=== PATIENT | male | born 1935 | race Caucasian/White ===

== ENCOUNTER 2019-05-22 18:08 | Inpatient (IN) | payer OTHER ==
[2019-05-22] MEDS ORDERED: LIDOCAINE 5% TOPICAL PATCH TP ONE (19:23)
[2019-05-22] MEDS ORDERED: CYCLOBENZAPRINE HCL 10 MG TABLET (FP) PO ONE (19:23)
[2019-05-22] MEDS ORDERED: NAPROXEN 500 MG TABLET (FP) PO ONE (19:31)
--- NOTE | 2019-05-22 19:37 | PDOC ---
Attending Attestation - Resident Resident Name: BrandenSteven blevins - ED Attending Attestation I have performed the following: I have examined & evaluated the patient, The case was reviewed & discussed with the resident, I agree w/resident's findings & plan - HPI HPI: 05/23/19 03:11 see resident hpi - Physicial Exam PE: 05/23/19 03:11 GENERAL: chronically ill appearing HEAD: No signs of trauma EYES: LUNGS:. Normal work of breathing. HEART: Regular rate and rhythm, ABDOMEN: Soft, nondistended CHEST WALL: BACK: No midline tenderness. EXTREMITIES:. tenderness left lateral hip, no deformity, positive NEUROLOGICAL: Alert, SKIN: Warm, Dry - Medical Decision Making 05/23/19 03:31 83-year-old male with left hip leg and low back pain CT scan of the abdomen and pelvis shows multilevel disc disease in the lumbar spine There does not appear to be a fracture present Patient has persistent pain and is unable to ambulate Will admit to medical service for management
--- NOTE | 2019-05-22 21:03 | PDOC ---
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 Admits numbness/tingling pain shooting down his leg and has not had a BM in 3 days which is unusual. Pt denies recent trauma , back pain, saddle anesthesia, abdominal pain, weakness in the leg, F/C/N/V, CP , SOB Past History - Past Medical History Allergies/Adverse Reactions: Allergies Allergy/AdvReac Type Severity Reaction Status Date / Time No Known Allergies Allergy Verified 05/22/19 19:54 Home Medications: Ambulatory Orders Albuterol Sulfate Inhaler - [Ventolin HFA Inhaler -] 1 puff IH PRN PRN 05/23/19 Amlodipine Besylate [Norvasc -] 5 mg PO DAILY 05/23/19 Aspirin [Aspirin EC] 81 mg PO DAILY 05/23/19 Cholecalciferol (Vitamin D3) [Vitamin D3] 400 unit PO DAILY 05/23/19 Cyanocobalamin [Vitamin B12 -] 2,000 mcg PO DAILY 05/23/19 Levothyroxine [Synthroid -] 88 mcg PO DAILY 05/23/19 Multivitamin [Multiple Vitamins] 1 tab PO DAILY 05/23/19 Sertraline HCl [Zoloft -] 25 mg PO DAILY 05/23/19 Tamsulosin HCl [Flomax] 0.4 mg PO DAILY 05/23/19 Tramadol HCl 50 mg PO DAILY 05/23/19 Hydrocortisone Valerate [Westcort 0.2% Cream -] 1 applic TP BID 05/24/19 - Suicide/Smoking/Psychosocial Hx Smoking History: Unknown if ever smoked Hx Alcohol Use: No Drug/Substance Use Hx: No Review of Systems - Review of Systems Constitutional: No: Chills, Fever Respiratory: No: Shortness of Breath Cardiac (ROS): No: Chest Pain, Syncope ABD/GI: Yes: Constipated. No: Diarrhea, Nausea, Vomiting : Yes: Frequency (decreased). No: Burning, Dysuria, Flank Pain, Hematuria, Incontinence Musculoskeletal: Yes: Other (left hip pain with radiation down left leg). No: Back Pain Integumentary: No: Change in Color Neurological: Yes: Numbness, Paresthesia, Unsteady Gait. No: Headache, Weakness , Ataxia, Dizziness *Physical Exam - Vital Signs Last Vital Signs Temp Pulse Resp BP Pulse Ox 97 F L 85 20 143/72 97 05/22/19 18:10 05/22/19 18:10 05/22/19 18:10 05/22/19 18:10 05/22/19 18:32 - Physical Exam General Appearance: Yes: Nourished, Appropriately Dressed, Apparent Distress ( due to pain) HEENT: positive: EOMI. negative: CAROLA, Normal Voice (uses assitive device) Neck: positive: Supple. negative: Rigid Respiratory/Chest: positive: Lungs Clear, Normal Breath Sounds. negative: Respiratory Distress, Accessory Muscle Use Cardiovascular: positive: Regular Rhythm, Regular Rate, S1, S2. negative: Edema , JVD, Murmur Vascular Pulses: Dorsalis-Pedis (R): 4+, Doralis-Pedis (L): 4+ Gastrointestinal/Abdominal: positive: Flat, Soft. negative: Pulsatile Mass, Distended, Guarding, Rebound, Tenderness Rectal Exam: positive: normal rectal tone. negative: hemorrhoids Extremity: positive: Normal Capillary Refill, Normal Inspection, Normal Range of Motion, Other (reproducible numbness/tingling down left leg with palpation to the piriformis) Integumentary: positive: Normal Color, Dry, Warm Neurologic: positive: Fully Oriented, Alert, Normal Mood/Affect, Normal Response , Motor Strength 5/5. 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 Admits numbness/tingling pain shooting down his leg and has not had a BM in 3 days which is unusual. Pt denies recent trauma , back pain, saddle anesthesia, abdominal pain, weakness in the leg, F/C/N/V, CP , SOB vitals WNL Pt has point tenderness around piroformis with reproducible shooting pain on exam, neg straight leg raise Muscle relaxent, NSAID and lidoderm patch given 05/22/19 22:29 Ortiz Black [phone] Abel Black Kana [phone] On reassessment pt admits to improved pain but continues to have difficulty with ambulation Due to past hx of prostate CA and new symptoms, with do APCT with Lumbar spine recon if neg, pt likely be DC for sciatica/piriformis syndrome with muscle relaxants and NSAIDs to control pain with PCP F/U Pt will be s/o to night team *DC/Admit/Observation/Transfer Diagnosis at time of Disposition: Unable to ambulate - Discharge Dispostion Condition at time of disposition: Stable - Referrals - Patient Instructions - Post Discharge Activity
[2019-05-22] MEDS ORDERED: NAPROXEN 500 MG TABLET (FP) ONE (21:24)
[2019-05-22] MEDS ORDERED: CYCLOBENZAPRINE HCL 10 MG TABLET (FP) ONE (21:24)
[2019-05-22] MEDS ORDERED: LIDOCAINE 5% TOPICAL PATCH ONE (21:24)
[2019-05-22] MEDS: LIDOCAINE PATCH REMOVAL MC SCH (22:16)
--- NOTE | 2019-05-23 03:04 | PDOC ---
*Physical Exam - Vital Signs Last Vital Signs Temp Pulse Resp BP Pulse Ox 97 F L 85 20 143/72 98 05/22/19 18:10 05/22/19 18:10 05/22/19 22:22 05/22/19 18:10 05/22/19 22:22 ED Treatment Course - RADIOLOGY Radiology Studies Ordered: Category Date Time Status FEMUR-LEFT [RAD] Stat Radiology 05/23/19 02:58 Ordered - Medications Given in the ED: ED Medications Discontinued Medications Generic Name Dose Route Start Last Admin Trade Name Erin PRN Reason Stop Dose Admin Cyclobenzaprine HCl 5 mg 05/22/19 19:23 05/22/19 21:27 Flexeril - PO 05/22/19 19:24 5 mg ONCE ONE Administration Lidocaine 1 patch 05/22/19 19:23 05/22/19 21:27 Lidoderm Patch - TP 05/22/19 19:24 1 patch ONCE ONE Administration Naproxen 500 mg 05/22/19 19:31 05/22/19 21:28 Naprosyn - PO 05/22/19 19:32 500 mg ONCE ONE Administration Medical Decision Making - Medical Decision Making 05/23/19 03:02 Pt signed out to me by Dr. Reddy. 83M with MMP including CA presenting with L lower back pain concerning for piriformis syndrome. Pt very TTP and cannot ambulate. Will admit for inability to ambulate and further evaluation of low back pain. Rectal exam shows normal tone. Reflexes normal. Microblogged for admission. *DC/Admit/Observation/Transfer - Referrals Referrals: ON STAFF,NOT [Primary Care Provider] - - Patient Instructions - Post Discharge Activity
--- NOTE | 2019-05-23 03:21 | PN ---
Teaching Attending Note Name of Resident: Arlene Bond ATTENDING PHYSICIAN STATEMENT I saw and evaluated the patient. I reviewed the resident's note and discussed the case with the resident. I agree with the resident's findings and plan as documented. SUBJECTIVE: Patient is an 83 year old man with PMH of Prostate cancer, Laryngeal cancer (s/ p resection with vocal assist device), Hypothyroidism and Hypertension who presents to the ER for 3 days of left lateral buttock pain with radiation down the leg. Patient states he has had similar pain in the past, treated by primary doctor with tramadol. However, patient did not get relief with his pain at this time. Admits numbness/tingling pain shooting down his leg and has not had a bowel movement in 3 days which is unusual. Has had some chills but no fever. Patient denies recent trauma, back pain, saddle anesthesia, abdominal pain, weakness in the leg, fever, nausea, vomiting, chest pain or SOB. OBJECTIVE: Alert and uses voice box to communicate Vital Signs Period Temp Pulse Resp BP Sys/Bennett Pulse Ox Last 24 Hr 97 F 85 20-20 143/72 97-98 HEENT: No Jaundice, eye redness or discharge, Left eye cataract, EOMI. Normocephalic, atraumatic. External ears are normal and hearing is grossly intact. No nasal discharge. Neck: Supple, nontender. No palpable adenopathy or thyromegaly. No JVD Chest: Good effort. Clear to auscultation and percussion. Heart: Regular. No S3, rub or murmur Abdomen: Not distended, soft, nontender and no HSM. Supraumblical hernia; No rebound or guarding. Normal bowel sounds. Ext: Peripheral pulses intact. Missing 3rd digit of right hand. No leg edema. Tenderness in left lateral hip aarea. Skin: Warm and dry. No petechiae, rash or ecchymosis. Neuro: Alert. Oriented x3. CN 2-12 grossly intact. Sensation grossly intact in all four extremities and DTR are symmetric. Gait not tested for safety reasons. Psych: Appropriate mood and affect. Good insight. Current Medications Generic Name Dose Route Start Last Admin Trade Name Freq PRN Reason Stop Dose Admin Miscellaneous 1 each 05/22/19 22:00 05/22/19 22:16 Lidoderm Patch Removal 1 each DAILY@2200 FRANSISCO Administration Abnormal Lab Results 05/23/19 05/23/19 03:45 03:45 WBC 11.0 H RBC 5.66 H Hgb 17.3 H Hct 52.9 H Absolute Neuts (auto) 8.8 H BUN 27.1 H Creatinine 1.7 H Total Bilirubin 1.2 H ASSESSMENT AND PLAN: 1. Intractable back pain/Inability to ambulate - Femur/hip and pelvis xray didnot reveal a fracture or dislocation. Lumbar, Abdomen/Pelvis CT showed lumbosacral degenerative disc disease, spinal stenosis, foramen narrowing and cholelithiasis. Will get lumbosacral MRI (?cord compression, ?diskitis), consult neurology, PT and neurosurgery. Treat with IV morphine, lidocaine patch , prednisone, protonix and provide bowel regimen. Leukocytosis is unexplained. Urinalysis is pending. Will repeat CBC and check rectal temp. No indication for antibiotics at this time - pending UA and MRI. Erythrocytosis may signal dehydration. If it persists after hydration, will do further workup since it may be related to his cancer history. Will continue comprehensive care of all his comorbid conditions. 2. IRMA - Cause unclear - no definite history of NSAID use. Will get CPK, kidney sonogram, urinalysis, hydrate gently and monitor urine output. Will consult nephrology and avoid nephrotoxic agents such as NSAIDS, aminoglycosides, contrast dyes and certain Alternative medicine products. 3. Obesity Counseled on the risks associated with obesity. Will provide patient all the necessary assistance, counseling and positive reinforcement to facilitate weight loss. Consult mounter hand. 4. Hypertension - Restart suitable outpatient antihypertensive drugs when clinically appropriate. Revise regimen to ensure [id number] excellent BP control and behavioral health counselor patient on the injurious effects of uncontrolled hypertension. Nonpharmacologic measures to control hypertension like weight loss , salt restriction and exercise discussed. Importance of adherence to treatment regimen and attainment of normotension emphasized. 5. DVT prophylaxis - Heparin 5000u sq tid. 6. Advance directives - Full code
[2019-05-23 03:55] LABS: BASO % 0.5 % (0-2.0); EOS % 0.4 % (0-4.5); HEMATOCRIT 52.9 % (35.4-49); HEMOGLOBIN 17.3 GM/dL (11.7-16.9); LYMPH % 10.2 % (8-40); MCH 30.5 pg (25.7-33.7); MCHC 32.6 g/dl (32.0-35.9); MEAN CELL VOLUME 93.5 fl (80-96); MEAN PLT VOLUME 8.8 fl (7.5-11.1); MONO % 8.8 % (3.8-10.2); NEUT % 80.1 % (42.8-82.8); PLATELET COUNT 343 K/MM3 (134-434); RBC 5.66 M/mm3 (4.00-5.60); RDW 14.2 % (11.9-15.9)
[2019-05-23 04:25] LABS: ALBUMIN 4.1 g/dl (3.4-5.0); BILIRUBIN,TOTAL 1.2 mg/dL (0.2-1); BLOOD UREA NITROGEN 27.1 mg/dL (7-18); CALCIUM 9.4 mg/dL (8.5-10.1); CREATININE 1.7 mg/dL (0.55-1.3); POTASSIUM 4.6 mmol/L (3.5-5.1)
[2019-05-23] MEDS ORDERED: ACETAMINOPHEN 500 MG TABLET (FP) PO PRN (05:45)
[2019-05-23] MEDS ORDERED: NALOXONE HCL 0.4 MG/ML VIAL IVPUSH PRN (05:45)
[2019-05-23] MEDS: HEPARIN NA (PORCINE) 5,000 UNITS/ML 1ML VIAL SQ SCH ×3 (06:11→22:35)
--- NOTE | 2019-05-23 06:12 | HP ---
CHIEF COMPLAINT: back pain PCP: unknown HISTORY OF PRESENT ILLNESS: Abel Black is an 83 year old male with a past medical history of hypertension, hypothyroidism, prostate cancer, laryngeal carcinoma (s/p resection, w/ vocal assist device) who presents with 3 days of increased back pain. The patient states that for the last 3 days he has been having increased amounts of lower back pain isolated to the left back with radiation down his leg. He endorses weakness, numbness, tingling, gait disturbance, unsteadiness. He states that he usually gets back pain but is usually controlled with tramadol at home of unknown dose. He states that he has been unable to ambulate due to the pain, gait disturbance, and weakness. States that he does not have any pain/weakness/ numbness/tingling radiating down his right leg. Additionally, he states that he has had constipation, poor oral intake, dizziness, lightheadedness, and occasional chills. He denies any syncopal episodes, falls, trauma to the area, or any events that began sudden onset severe pain to the area. Denied urinary incontinence, urinary frequency, urgency, hesitancy, dysuria. Denies nausea, vomiting, chest pain, shortness of breath, abdominal pain. ER course was notable for: (1) CT scan of abd/pelvis/lumbar spine showing cholelithasis in gallbladder neck with gallbladder distension, small hiatal hernia with non-specific lower esophageal wall thickening, thickening of cecum and ascending colon, prostatomegaly, bladder wall thickening, L5-S1 moderate degenerative disc disease and severe bilateral neural foraminal narrowing, L4-L5 moderate-severe spinal canal stenosis, L3-L4 mild-moderate spinal canal stenosis (2) H/H 17.3/52.9, WBC 11.0, BUN 27.1, CRE 1.7, bilirubin 1.2 Recent Travel: denies PAST MEDICAL HISTORY: as above PAST SURGICAL HISTORY: s/p laryngeal cancer resection Social History: Smoking: denies Alcohol: former drinker, now occasional Drugs: denies Lives at home with son Family History: denies significant family history Allergies No Known Allergies Allergy (Verified 05/22/19 19:54) HOME MEDICATIONS: REVIEW OF SYSTEMS CONSTITUTIONAL: chills, generalized weakness, loss of appetite Absent: fever, diaphoresis, malaise, weight change HEENT: Absent: rhinorrhea, nasal congestion, throat pain, throat swelling, difficulty swallowing, visual changes CARDIOVASCULAR: lightheadedness Absent: chest pain, syncope, palpitations, irregular heart rate, peripheral edema RESPIRATORY: Absent: cough, shortness of breath, dyspnea with exertion, orthopnea, wheezing, GASTROINTESTINAL: constipation Absent: abdominal pain, abdominal distension, nausea, vomiting, diarrhea GENITOURINARY: Absent: dysuria, frequency, urgency, hesitancy, hematuria, flank pain MUSCULOSKELETAL: back pain, radiation of pain down L leg Absent: myalgia, arthralgia, joint swelling, neck pain SKIN: Absent: rash, itching, pallor HEMATOLOGIC/IMMUNOLOGIC: Absent: easy bleeding, easy bruising, lymphadenopathy, frequent infections ENDOCRINE: Absent: unexplained weight gain, unexplained weight loss, heat intolerance, cold intolerance NEUROLOGIC: Left lower extremity weakness, paresthesias, numbness, dizziness, unsteady gait Absent: headache, seizure, mental status changes, bladder or bowel incontinence PSYCHIATRIC: Absent: anxiety, depression, suicidal or homicidal ideation, hallucinations. PHYSICAL EXAMINATION Vital Signs - 24 hr 05/22/19 05/22/19 05/22/19 18:10 18:32 22:22 Temperature 97 F L Pulse Rate 85 Pulse Rate [ Radial] Respiratory 20 20 Rate Blood Pressure 143/72 Blood Pressure [Left Arm] O2 Sat by Pulse 97 97 98 Oximetry (%) 05/23/19 03:49 Temperature 97.6 F Pulse Rate Pulse Rate [ 80 Radial] Respiratory Rate Blood Pressure Blood Pressure 140/70 [Left Arm] O2 Sat by Pulse Oximetry (%) GENERAL: Awake, alert, and fully oriented, in no acute distress. HEAD: Normal with no signs of trauma. EYES: L eye with corneal opacity. R eye round and reactive to light. EARS, NOSE, THROAT: Oropharynx clear without exudates. Dry mucous membranes. NECK: Normal range of motion, supple without lymphadenopathy, JVD. Tracheostomy site clean, dry, and intact. LUNGS: Breath sounds equal, clear to auscultation bilaterally. No wheezes, and no crackles. No accessory muscle use. HEART: Regular rate and rhythm, normal S1 and S2 without murmur, rub or gallop. ABDOMEN: Soft, nontender, mildly distended, normoactive bowel sounds, no guarding, no rebound, no masses. Inguinal hernia and supraumbilical hernia palpated. MUSCULOSKELETAL: Normal range of motion at all joints. No bony deformities or tenderness. UPPER EXTREMITIES: 2+ pulses, warm, well-perfused. No cyanosis. No clubbing. No peripheral edema. LOWER EXTREMITIES: 2+ pulses, warm, well-perfused. No calf tenderness. No peripheral edema. NEUROLOGICAL: Cranial nerves II-XII intact with exception of L eye. 5/5 muscle strength upper extremities bilaterally. 5/5 muscle strength on R lower extremity. 4/5 muscle strength proximally on L lower extremity. 2-3/5 muscle strength distally on L lower extremity. Decreased sensation on L lower extremity distally not isolated to one particular dermatome. Finger to nose intact. Heel to cummings intact. PSYCHIATRIC: Cooperative. Good eye contact. Appropriate mood and affect. SKIN: Warm, dry, normal turgor, no rashes or lesions noted, normal capillary refill. Laboratory Results - last 24 hr 05/23/19 05/23/19 05/23/19 03:45 03:45 03:45 WBC 11.0 H RBC 5.66 H Hgb 17.3 H Hct 52.9 H MCV 93.5 MCH 30.5 MCHC 32.6 RDW 14.2 Plt Count 343 MPV 8.8 Absolute Neuts (auto) 8.8 H Neutrophils % 80.1 Lymphocytes % 10.2 Monocytes % 8.8 Eosinophils % 0.4 Basophils % 0.5 Nucleated RBC % 0 ESR 3 Sodium 140 Potassium 4.6 Chloride 103 Carbon Dioxide 25 Anion Gap 11 BUN 27.1 H Creatinine 1.7 H Est GFR (CKD-EPI)AfAm 42.58 Est GFR (CKD-EPI)NonAf 36.74 Random Glucose 81 Calcium 9.4 Total Bilirubin 1.2 H AST 27 ALT 19 Alkaline Phosphatase 82 Total Protein 7.0 Albumin 4.1 ASSESSMENT/PLAN: Abel Black is an 83 year old male with a past medical history of hypertension, hypothyroidism, prostate cancer, laryngeal carcinoma (s/p resection, w/ vocal assist device) who is admitted for intractable back pain and difficulty ambulating. Intractable Back Pain/Difficulty Ambulating Leukocytosis Erythrocytosis IRMA/CKD Elevated bilirubin Hypothyroidism Hypertension Intractable Back Pain/Difficulty Ambulating - likely secondary to spinal canal stenosis - CT results as above - MRI of spine to rule out spinal cord compression - continue Flexeril 5mg daily - pain control as per pain order set - physical therapy - neurosurgery consult to evaluate for surgical need for decompression - neurology consult for medical management of spinal canal stenosis - can consider prednisone if found with spinal cord compression Leukocytosis - no apparent infection present - possibly from dehydration - UA to evaluate for occult UTI infection Polycythemia - unclear origin - possibly from dehydration - IV hydration IRMA/CKD - unclear baseline - likely from dehydration, possible from post-renal obstructive from enlarged prostate - renal U/S - renal electrolytes - IV hydration - encourage PO intake Elevated bilirubin - possible from cholelithiasis - RUQ U/S - total and direct bilirubin - continue to monitor for clinical signs of gallbladder pathology Hypothyroidism - unclear dosage of medication, need to reconcile from patient's pharmacy - TSH ordered Hypertension - need to reconcile from patient's pharmacy FEN - NS at 75cc/hr - continue to monitor electrolytes and replete as necessary - sodium controlled diet Prophylaxis - heparin 5000 units subq tid Code - full code KRYSTIN RICE DO - PGY-1 Visit type - Emergency Visit Emergency Visit: Yes ED Registration Date: 05/23/19 Care time: The patient presented to the Emergency Department on the above date and was hospitalized for further evaluation of their emergent condition. - New Patient This patient is new to me today: Yes Date on this admission: 05/23/19 - Critical Care Critical Care patient: No
[2019-05-23] MEDS ORDERED: oxyCODONE HCL 5 MG TABLET ONE ×2 (06:50→14:36)
[2019-05-23] MEDS: oxyCODONE HCL 5 MG TABLET PO PRN ×2 (07:01→14:33)
[2019-05-23] MEDS: SODIUM CHLORIDE 1,000 ML IV SCH (07:01)
[2019-05-23] MEDS ORDERED: ENOXAPARIN NA (PORCINE) 40 MG/0.4 ML DISP.SYRIN SQ SCH (10:00)
[2019-05-23] MEDS: LIDOCAINE 5% TOPICAL PATCH TP SCH (11:00)
[2019-05-23] MEDS: PANTOPRAZOLE 40 MG TABLET (FP) PO SCH (11:10)
[2019-05-23] MEDS: CYCLOBENZAPRINE HCL 5 MG TABLET PO SCH (11:10)
[2019-05-23] MEDS: DOCUSATE SODIUM 100 MG CAPSULE (FP) PO SCH (11:15)
--- NOTE | 2019-05-23 12:32 | CONSULT ---
Consult - text type - Consultation Consultation Note: NEUROSURGERY CONSULTATION Abel Black is an 83 year old Latin male with a history of Laryngeal cancer and prostate cancer who is status post radical neck dissection with tracheostomy. He speaks with the assistance of a phonetic device. He was in his relative state of good health until 3 days ago when he began to manifest progressive low back pain with radiation down his Left leg. This is now associated with numbness , weakness and severe pain which precludes ambulation. CT Lumbar demonstrates multilevel spondylotic changes. Although there is no formal reading of this exam yet, I am concerned that there may be several lytic lesions consistent with possible spread of one of his cancers. I agree with plans for MRI Lumbar to evaluate further. - MRI Lumbar - GI/DVT prophylaxis - Pain control - Will follow
[2019-05-23 14:37] LABS: BILIRUBIN,DIRECT 0.2 mg/dL (0.0-0.2); MAGNESIUM 2.2 mg/dL (1.8-2.4)
--- NOTE | 2019-05-23 17:22 | PN ---
Physical Exam: SUBJECTIVE: Patient seen and examined. Pt was lying comfortably in ER. OBJECTIVE: Vital Signs Period Temp Pulse Resp BP Sys/Bennett Pulse Ox Last 24 Hr 97 F-98.3 F 73-90 15-20 140-160/70-91 18-98 EYES: L eye with corneal opacity. EARS, NOSE, THROAT: Dry mucous membranes. NECK: Tracheostomy site clean, dry, and intact. LUNGS: Breath sounds equal, clear to auscultation bilaterally. No wheezes, and no crackles. No accessory muscle use. HEART: Regular rate and rhythm, normal S1 and S2 without murmur, rub or gallop. ABDOMEN: Soft, nontender, mildly distended, normoactive bowel sounds, no guarding, no rebound, no masses. Inguinal hernia and supraumbilical hernia palpated. EXTREMITIES: 2+ pulses, warm, well-perfused. No cyanosis. No clubbing. No peripheral edema. NEUROLOGICAL: Cranial nerves II-XII intact with exception of L eye. 5/5 muscle strength upper extremities bilaterally. 5/5 muscle strength on R lower extremity. 4/5 muscle strength proximally on L lower extremity. 2-3/5 muscle strength distally on L lower extremity. Decreased sensation on L lower extremity distally not isolated to one particular dermatome. Finger to nose intact. Heel to cummings intact. Laboratory Results - last 24 hr 05/23/19 05/23/19 05/23/19 03:45 03:45 03:45 WBC 11.0 H RBC 5.66 H Hgb 17.3 H Hct 52.9 H MCV 93.5 MCH 30.5 MCHC 32.6 RDW 14.2 Plt Count 343 MPV 8.8 Absolute Neuts (auto) 8.8 H Neutrophils % 80.1 Lymphocytes % 10.2 Monocytes % 8.8 Eosinophils % 0.4 Basophils % 0.5 Nucleated RBC % 0 ESR 3 Sodium 140 Potassium 4.6 Chloride 103 Carbon Dioxide 25 Anion Gap 11 BUN 27.1 H Creatinine 1.7 H Est GFR (CKD-EPI)AfAm 42.58 Est GFR (CKD-EPI)NonAf 36.74 Random Glucose 81 Calcium 9.4 Magnesium 2.2 Total Bilirubin 1.2 H Direct Bilirubin 0.2 AST 27 ALT 19 Alkaline Phosphatase 82 Total Protein 7.0 Albumin 4.1 TSH 10.30 H Active Medications Generic Name Dose Route Start Last Admin Trade Name Freq PRN Reason Stop Dose Admin Acetaminophen 1,000 mg 05/23/19 05:45 Tylenol - PO Q6H PRN PAIN LEVEL 1 - 3 Cyclobenzaprine HCl 5 mg 05/23/19 10:00 05/23/19 11:10 Cyclobenzaprine Hcl PO 5 mg DAILY FRANSISCO Administration Docusate Sodium 100 mg 05/23/19 10:00 05/23/19 11:15 Colace - PO Not Given DAILY FRANSISCO Heparin Sodium (Porcine) 5,000 unit 05/23/19 06:00 05/23/19 14:29 Heparin - SQ 5,000 unit TID FRANSISCO Administration Sodium Chloride 1,000 mls @ 75 mls/hr 05/23/19 06:30 05/23/19 07:01 Normal Saline - IV 75 mls/hr ASDIR FRANSISCO Administration Lidocaine 1 patch 05/23/19 10:00 05/23/19 11:00 Lidoderm Patch - TP 1 patch DAILY FRANSISCO Administration Miscellaneous 1 each 05/22/19 22:00 05/22/19 22:16 Lidoderm Patch Removal MC 1 each DAILY@2200 FRANSISCO Administration Miscellaneous 1 each 05/23/19 22:00 Lidoderm Patch Removal MC DAILY@2200 FRANSISCO Naloxone HCl 0.4 mg 05/23/19 05:45 Narcan - IVPUSH PRN PRN RESPIRATORY DEPRESSION Oxycodone HCl 5 mg 05/23/19 05:45 05/23/19 07:01 Roxicodone - PO 5 mg Q4H PRN Administration PAIN LEVEL 4 - 6 Oxycodone HCl 10 mg 05/23/19 05:45 05/23/19 14:33 Roxicodone - PO 10 mg Q4H PRN Administration PAIN LEVEL 7 - 10 Pantoprazole Sodium 40 mg 05/23/19 10:00 05/23/19 11:10 Protonix - PO 40 mg DAILY FRANSISCO Administration ASSESSMENT/PLAN: Abel Black is an 83 year old male with a past medical history of hypertension, hypothyroidism, prostate cancer, laryngeal carcinoma (s/p resection, w/ vocal assist device) who is admitted for intractable back pain and difficulty ambulating. Intractable Back Pain/Difficulty Ambulating likely secondary to spinal canal stenosis MRI lumbar spine pending continue Flexeril 5mg daily pain control Neurosurgery consulted and will follow up with MRI [facility] IRMA/CKD unclear baseline 27.1/1.7 due dehydration . Pt on IV fluids U/S : Cholelithiasis. 2. Heterogeneous liver with no evidence of biliary ductal dilatation. 3. Morphologically normal kidneys with no evidence of hydronephrosis or acute renal pathology. 4. No significant postvoid residual or prostatic enlargement. Limited study as described above. Hypothyroidism Levothyroxine 88mcg PO daily TSH 10.30 Prophylaxis - heparin 5000 units subq tid Code - full code Visit type - Emergency Visit Emergency Visit: Yes ED Registration Date: 05/23/19 Care time: The patient presented to the Emergency Department on the above date and was hospitalized for further evaluation of their emergent condition. - New Patient This patient is new to me today: Yes Date on this admission: 05/23/19 - Critical Care Critical Care patient: No - Discharge Referral Referred to [facility] No ATTENDING PHYSICIAN STATEMENT I saw and evaluated the patient. I reviewed the resident's note and discussed the case with the resident. I agree with the resident's findings and plan as documented. SUBJECTIVE: OBJECTIVE: ASSESSMENT AND PLAN:
[2019-05-23 18:55] LABS: EPI CELLS 5.6 /HPF (0-5/HPF); HYALINE CASTS 60 /lpf (0-8); URINE APPEARANCE CLOUDY; URINE BACTERIA 2.9 /hpf (NEGATIVE); URINE BILIRUBIN NEGATIVE (NEGATIVE); URINE COLOR DK YELLOW; URINE GLUCOSE (UA) NEGATIVE (NEGATIVE); URINE KETONE 1+ (NEGATIVE); URINE LEUK ESTERASE NEGATIVE (NEGATIVE); URINE NITRITE NEGATIVE (NEGATIVE); URINE PROTEIN 1+ (NEGATIVE); URINE RBC 4 /hpf (0-4); URINE WBC 4 /hpf (0-5)
--- NOTE | 2019-05-23 21:24 | PN ---
Teaching Attending Note Name of Resident: Alexia Pedro ATTENDING PHYSICIAN STATEMENT I saw and evaluated the patient. I reviewed the resident's note and discussed the case with the resident. I agree with the resident's findings and plan as documented. SUBJECTIVE: Patient is c/o having low back pain and LLE knee pain , pain with ambulation. OBJECTIVE: Vital Signs Temperature 98.1 F 05/23/19 18:02 Pulse Rate 85 05/23/19 18:02 Respiratory Rate 19 05/23/19 18:02 Blood Pressure 167/109 H 05/23/19 18:02 O2 Sat by Pulse Oximetry (%) 95 05/23/19 18:02 GENERAL: The patient is awake, alert, and fully oriented, in no acute distress. HEAD: Normal with no signs of trauma. EYES: PERRL, extraocular movements intact, sclera anicteric, conjunctiva clear. ENT: Ears normal, oropharynx clear without exudates, moist mucous membranes. NECK: Trachea midline, full range of motion, supple. LUNGS: Breath sounds equal, clear to auscultation bilaterally, no wheezes, no crackles, no accessory muscle use. HEART: Regular rate and rhythm, S1, S2 without murmur, rub or gallop. ABDOMEN: Soft, nontender, nondistended, normoactive bowel sounds, no guarding, no rebound, no hepatosplenomegaly, no masses. EXTREMITIES: 2+ pulses, warm, well-perfused, no edema. NEUROLOGICAL: Cranial nerves II through XII grossly intact. Normal speech, gait not observed. PSYCH: Normal mood, normal affect. SKIN: Warm, dry, normal turgor, no rashes or lesions noted CBCD WBC 11.0 K/mm3 (4.0-10.0) H 05/23/19 03:45 RBC 5.66 M/mm3 (4.00-5.60) H 05/23/19 03:45 Hgb 17.3 GM/dL (11.7-16.9) H 05/23/19 03:45 Hct 52.9 % (35.4-49) H 05/23/19 03:45 MCV 93.5 fl (80-96) 05/23/19 03:45 MCHC 32.6 g/dl (32.0-35.9) 05/23/19 03:45 RDW 14.2 % (11.9-15.9) 05/23/19 03:45 Plt Count 343 K/MM3 (134-434) 05/23/19 03:45 MPV 8.8 fl (7.5-11.1) 05/23/19 03:45 CMP Sodium 140 mmol/L (136-145) 05/23/19 03:45 Potassium 4.6 mmol/L (3.5-5.1) 05/23/19 03:45 Chloride 103 mmol/L (98-107) 05/23/19 03:45 Carbon Dioxide 25 mmol/L (21-32) 05/23/19 03:45 Anion Gap 11 MMOL/L (8-16) 05/23/19 03:45 BUN 27.1 mg/dL (7-18) H 05/23/19 03:45 Creatinine 1.7 mg/dL (0.55-1.3) H 05/23/19 03:45 Random Glucose 81 mg/dL (74-106) 05/23/19 03:45 Calcium 9.4 mg/dL (8.5-10.1) 05/23/19 03:45 Total Bilirubin 1.2 mg/dL (0.2-1) H 05/23/19 03:45 AST 27 U/L (15-37) 05/23/19 03:45 ALT 19 U/L (13-61) 05/23/19 03:45 Alkaline Phosphatase 82 U/L (45-117) 05/23/19 03:45 Total Protein 7.0 g/dl (6.4-8.2) 05/23/19 03:45 Albumin 4.1 g/dl (3.4-5.0) 05/23/19 03:45 Current Medications Generic Name Dose Route Start Last Admin Trade Name Freq PRN Reason Stop Dose Admin Acetaminophen 1,000 mg 05/23/19 05:45 Tylenol - PO Q6H PRN PAIN LEVEL 1 - 3 Cyclobenzaprine HCl 5 mg 05/23/19 10:00 05/23/19 11:10 Cyclobenzaprine Hcl PO 5 mg DAILY FRANSISCO Administration Docusate Sodium 100 mg 05/23/19 10:00 05/23/19 11:15 Colace - PO Not Given DAILY FRANSISCO Heparin Sodium (Porcine) 5,000 unit 05/23/19 06:00 05/23/19 14:29 Heparin - SQ 5,000 unit TID FRANSISCO Administration Sodium Chloride 1,000 mls @ 75 mls/hr 05/23/19 06:30 05/23/19 07:01 Normal Saline - IV 75 mls/hr ASDIR FRANSISCO Administration Lidocaine 1 patch 05/23/19 10:00 05/23/19 11:00 Lidoderm Patch - TP 1 patch DAILY FRANSISCO Administration Miscellaneous 1 each 05/22/19 22:00 05/22/19 22:16 Lidoderm Patch Removal MC 1 each DAILY@2200 FRANSISCO Administration Miscellaneous 1 each 05/23/19 22:00 Lidoderm Patch Removal MC DAILY@2200 FRANSISCO Naloxone HCl 0.4 mg 05/23/19 05:45 Narcan - IVPUSH PRN PRN RESPIRATORY DEPRESSION Oxycodone HCl 5 mg 05/23/19 05:45 05/23/19 07:01 Roxicodone - PO 5 mg Q4H PRN Administration PAIN LEVEL 4 - 6 Oxycodone HCl 10 mg 05/23/19 05:45 05/23/19 14:33 Roxicodone - PO 10 mg Q4H PRN Administration PAIN LEVEL 7 - 10 Pantoprazole Sodium 40 mg 05/23/19 10:00 05/23/19 11:10 Protonix - PO 40 mg DAILY FRANSISCO Administration Pneumococcal 13-Valent Conj Vacc 0.5 ml 05/24/19 08:00 Prevnar 13 Syringe - IM 05/24/19 08:01 .ONCE ONE Home Medications Medication Instructions Recorded Albuterol Sulfate Inhaler - 1 puff IH PRN PRN 05/23/19 [Ventolin HFA Inhaler -] Amlodipine Besylate [Norvasc -] 5 mg PO DAILY 05/23/19 Aspirin [Aspirin EC] 81 mg PO DAILY 05/23/19 Cholecalciferol (Vitamin D3) 400 unit PO DAILY 05/23/19 [Vitamin D3] Cyanocobalamin [Vitamin B12 -] 2,000 mcg PO DAILY 05/23/19 Levothyroxine [Synthroid -] 88 mcg PO DAILY 05/23/19 Multivitamin [Multiple Vitamins] 1 tab PO DAILY 05/23/19 Sertraline HCl [Zoloft -] 25 mg PO DAILY 05/23/19 Tamsulosin HCl [Flomax] 0.4 mg PO DAILY 05/23/19 Tramadol HCl 50 mg PO DAILY 05/23/19 US of abdomen: Cholelithiasis. 2. Heterogeneous liver with no evidence of biliary ductal dilatation. 3. Morphologically normal kidneys with no evidence of hydronephrosis or acute renal pathology. 4. No significant postvoid residual or prostatic enlargement. Limited study as described above. ASSESSMENT AND PLAN: Abel Black is an 83 year old male with a PMHx of Laryngeal cancer and prostate cancer who is status post radical neck dissection with tracheostomy (s/p resection, w/ vocal assist device) speaks with assistance of phonic device , hypertension, hypothyroidism, prostate cancer is admitted for intractable back pain and difficulty ambulating. # Intractable Back Pain/with Difficulty Ambulating: pain control ,flexeril , neuro and neurosx consult appreciated # spinal canal stenosis: MRI lumbar spine pending # IRMA/CKD: ON IV F # Hypothyroidism :on Levothyroxine 88mcg PO daily, TSH 10.30, will repeat TSH, FT4 DVT px: heparin 5000 units subq tid Code: full code
[2019-05-23] MEDS: LIDOCAINE PATCH REMOVAL MC SCH ×2 (22:36→22:42)
[2019-05-24] MEDS: oxyCODONE HCL 5 MG TABLET PO PRN ×2 (00:50→06:05)
[2019-05-24] MEDS: HEPARIN NA (PORCINE) 5,000 UNITS/ML 1ML VIAL SQ SCH ×3 (06:04→22:11)
[2019-05-24] MEDS ORDERED: ALBUTEROL SO4 8 GM HFA INHALER IH PRN (06:17)
[2019-05-24] MEDS: LEVOTHYROXINE NA 88 MCG TABLET (FP) PO SCH (07:07)
[2019-05-24] MEDS: SODIUM CHLORIDE 1,000 ML IV SCH ×2 (07:12→20:08)
[2019-05-24 08:28] LABS: BASO % 0.6 % (0-2.0); HEMATOCRIT 48.3 % (35.4-49); HEMOGLOBIN 16.4 GM/dL (11.7-16.9); LYMPH % 16.8 % (8-40); MCH 31.6 pg (25.7-33.7); MCHC 33.9 g/dl (32.0-35.9); MEAN CELL VOLUME 93.2 fl (80-96); MEAN PLT VOLUME 8.7 fl (7.5-11.1); MONO % 9.9 % (3.8-10.2); NEUT % 69.7 % (42.8-82.8); PLATELET COUNT 302 K/MM3 (134-434); RBC 5.18 M/mm3 (4.00-5.60); RDW 13.9 % (11.9-15.9); WHITE BLOOD COUNT 6.8 K/mm3 (4.0-10.0)
[2019-05-24 09:08] LABS: BLOOD UREA NITROGEN 24.8 mg/dL (7-18); CALCIUM 9.3 mg/dL (8.5-10.1); CREATININE 1.2 mg/dL (0.55-1.3)
--- NOTE | 2019-05-24 09:58 | PN ---
Teaching Attending Note Name of Resident: Alexia Pedro ATTENDING PHYSICIAN STATEMENT I saw and evaluated the patient. I reviewed the resident's note and discussed the case with the resident. I agree with the resident's findings and plan as documented. SUBJECTIVE: Patient is c/o having low back pain and left knee pain OBJECTIVE: Vital Signs Temperature 97.7 F 05/24/19 05:46 Pulse Rate 63 05/24/19 05:46 Respiratory Rate 20 05/24/19 05:46 Blood Pressure 133/80 05/24/19 05:46 O2 Sat by Pulse Oximetry (%) 95 05/23/19 18:02 GENERAL: The patient is awake, alert, and fully oriented, in no acute distress. HEAD: Normal with no signs of trauma. EYES: opacification of left eye legally blind ENT: s/p trachostomy with vocal assist device the speech NECK: Trachea midline, full range of motion, supple. LUNGS: Breath sounds equal, clear to auscultation bilaterally, no wheezes, no crackles, no accessory muscle use. HEART: Regular rate and rhythm, S1, S2 without murmur, rub or gallop. ABDOMEN: Soft, nontender, nondistended, normoactive bowel sounds, no guarding, no rebound, no hepatosplenomegaly, no masses. EXTREMITIES: 2+ pulses, warm, well-perfused, no edema. NEUROLOGICAL: Cranial nerves II through XII grossly intact. Normal speech, gait not observed. PSYCH: Normal mood, normal affect. SKIN: Warm, dry, normal turgor, no rashes or lesions noted CBCD WBC 6.8 K/mm3 (4.0-10.0) 05/24/19 07:46 RBC 5.18 M/mm3 (4.00-5.60) 05/24/19 07:46 Hgb 16.4 GM/dL (11.7-16.9) 05/24/19 07:46 Hct 48.3 % (35.4-49) 05/24/19 07:46 MCV 93.2 fl (80-96) 05/24/19 07:46 MCHC 33.9 g/dl (32.0-35.9) 05/24/19 07:46 RDW 13.9 % (11.9-15.9) 05/24/19 07:46 Plt Count 302 K/MM3 (134-434) 05/24/19 07:46 MPV 8.7 fl (7.5-11.1) 05/24/19 07:46 CMP Sodium 140 mmol/L (136-145) 05/24/19 07:46 Potassium 5.0 mmol/L (3.5-5.1) 05/24/19 07:46 Chloride 105 mmol/L (98-107) 05/24/19 07:46 Carbon Dioxide 30 mmol/L (21-32) 05/24/19 07:46 Anion Gap 5 MMOL/L (8-16) L 05/24/19 07:46 BUN 24.8 mg/dL (7-18) H 05/24/19 07:46 Creatinine 1.2 mg/dL (0.55-1.3) 05/24/19 07:46 Random Glucose 79 mg/dL (74-106) 05/24/19 07:46 Calcium 9.3 mg/dL (8.5-10.1) 05/24/19 07:46 Total Bilirubin 1.2 mg/dL (0.2-1) H 05/23/19 03:45 AST 27 U/L (15-37) 05/23/19 03:45 ALT 19 U/L (13-61) 05/23/19 03:45 Alkaline Phosphatase 82 U/L (45-117) 05/23/19 03:45 Total Protein 7.0 g/dl (6.4-8.2) 05/23/19 03:45 Albumin 4.1 g/dl (3.4-5.0) 05/23/19 03:45 Current Medications Generic Name Dose Route Start Last Admin Trade Name Freq PRN Reason Stop Dose Admin Acetaminophen 1,000 mg 05/23/19 05:45 Tylenol - PO Q6H PRN PAIN LEVEL 1 - 3 Albuterol Sulfate 2 puff 05/24/19 06:17 Ventolin Hfa Inhaler - IH Q6H PRN SHORTNESS OF BREATH Amlodipine Besylate 5 mg 05/24/19 10:00 Norvasc - PO DAILY [facility] Aspirin 81 mg 05/24/19 10:00 Ecotrin - PO DAILY [facility] Cyclobenzaprine HCl 5 mg 05/23/19 10:00 05/23/19 11:10 Cyclobenzaprine Hcl PO 5 mg DAILY FRANSISCO Administration Docusate Sodium 100 mg 05/23/19 10:00 05/23/19 11:15 Colace - PO Not Given DAILY [facility] Heparin Sodium (Porcine) 5,000 unit 05/23/19 06:00 05/24/19 06:04 Heparin - SQ 5,000 unit TID FRANSISCO Administration Sodium Chloride 1,000 mls @ 75 mls/hr 05/23/19 06:30 05/24/19 07:12 Normal Saline - IV 75 mls/hr ASDIR FRANSISCO Administration Levothyroxine Sodium 88 mcg 05/24/19 07:00 05/24/19 07:07 Synthroid - PO 88 mcg ACBK [facility] Administration Lidocaine 1 patch 05/23/19 10:00 05/23/19 11:00 Lidoderm Patch - TP 1 patch DAILY FRANSISCO Administration Miscellaneous 1 each 05/22/19 22:00 05/23/19 22:36 Lidoderm Patch Removal MC 1 each DAILY@2199 FRANSISCO Administration Miscellaneous 1 each 05/23/19 22:00 05/23/19 22:42 Lidoderm Patch Removal MC Not Given DAILY@2199 [facility] Naloxone HCl 0.4 mg 05/23/19 05:45 Narcan - IVPUSH PRN PRN RESPIRATORY DEPRESSION Oxycodone HCl 5 mg 05/23/19 05:45 05/24/19 06:05 Roxicodone - PO 5 mg Q4H PRN Administration PAIN LEVEL 4 - 6 Oxycodone HCl 10 mg 05/23/19 05:45 05/24/19 00:50 Roxicodone - PO 10 mg Q4H PRN Administration PAIN LEVEL 7 - 10 Pantoprazole Sodium 40 mg 05/23/19 10:00 05/23/19 11:10 Protonix - PO 40 mg DAILY [facility] Administration Pneumococcal 13-Valent Conj Vacc 0.5 ml 05/24/19 08:00 Prevnar 13 Syringe - IM 05/24/19 08:01 .ONCE ONE Sertraline HCl 25 mg 05/24/19 10:00 Zoloft - PO DAILY [facility] Tamsulosin HCl 0.4 mg 05/24/19 08:30 Flomax - PO DAILY@0830 [facility] Home Medications Medication Instructions Recorded Albuterol Sulfate Inhaler - 1 puff IH PRN PRN 05/23/19 [Ventolin HFA Inhaler -] Amlodipine Besylate [Norvasc -] 5 mg PO DAILY 05/23/19 Aspirin [Aspirin EC] 81 mg PO DAILY 05/23/19 Cholecalciferol (Vitamin D3) 400 unit PO DAILY 05/23/19 [Vitamin D3] Cyanocobalamin [Vitamin B12 -] 2,000 mcg PO DAILY 05/23/19 Levothyroxine [Synthroid -] 88 mcg PO DAILY 05/23/19 Multivitamin [Multiple Vitamins] 1 tab PO DAILY 05/23/19 Sertraline HCl [Zoloft -] 25 mg PO DAILY 05/23/19 Tamsulosin HCl [Flomax] 0.4 mg PO DAILY 05/23/19 Tramadol HCl 50 mg PO DAILY 05/23/19 US of abdomen: Cholelithiasis. 2. Heterogeneous liver with no evidence of biliary ductal dilatation. 3. Morphologically normal kidneys with no evidence of hydronephrosis or acute renal pathology. 4. No significant postvoid residual or prostatic enlargement. Limited study as described above. ASSESSMENT AND PLAN: Abel Black is an 83 year old male with a PMHx of Laryngeal cancer and prostate cancer who is status post radical neck dissection with tracheostomy (s/p resection, w/ vocal assist device) speaks with assistance of phonic device , hypertension, hypothyroidism, prostate cancer is admitted for intractable back pain and difficulty ambulating. # Intractable Back Pain/with Difficulty Ambulating: pain control ,flexeril , neuro and neurosx consult appreciated, MRI report noted. DDD # spinal canal stenosis: MRI lumbar spine reviewed seen by neurosx # IRMA/CKD: ON IVF is 1.2 improving # Hypothyroidism :on Levothyroxine 88mcg PO daily, TSH 10.30, will repeat TSH, FT4, discussed with the sons and the patient whether he religiously take the medication since TSH elevated. will repeat the levels DVT px: heparin 5000 units subq tid Code: full code
--- NOTE | 2019-05-24 10:44 | CONSULT ---
Consult - text type - Consultation Consultation Note: NEUROLOGY CONSULT GREATLY APPRECIATED: Events reviewed and neurosurgical consult read. 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 Ambulates without assistive device at home. PMHX: HTN, hypothyroidism, Laryngeal CA s/p resection with vocal assist device, Hx of Prostate CA, former ETOH use On: albuterol, amlodipine, ASA, vit D, B12, Synthroid, MTV, sertraline 25 mg po qd, Tamsulosin, tramadol 50 mg qd. Describes 3 years of intermittent low back described as "aching." Now with 4 days of new radiation of pain down anterior left leg. This is worse with prolonged sitting and improves with movement of the leg. Now is interrupting sleep with recurrent awakenings due to pain. WBC= 11; H/H 5.66/17.3->5.18/16.4 ; platelet= 343; UA WBC= 4; TSH= 10.30!; ESR= 3 CT of LS spine (reviewed): Multilevel DJD with disc bulges and facet hypertrophy without cord compression. MRI of LS spine (reviewed, not yet reported): Normal alignment. L2/L3, L3/L4 disc bulges (HNP) with posterior ostephyte complexes. No sig. spinal stenosis. ELDON: BP 167/109-> 133/80. Cor reg. No bruit. Neck supple. Neg SLR. Neg Musa' s. Neg Mario's. No spinal tenderness.S/P R III digit amputation. Mentation/Speech: Writing responses down. Somewhat pressured. A Mild OMS may be present. CNII-CNXII: OS Blind. EOM's full with full escudero. No facial. Gag ok. Motor: No drift or tremor. Strength normal. Reflexes normal in arms and legs. Toes downgoing. Coordination: No FTN dystaxia. Sensation: Feels vibration R > L toes. Gait: Min flexed, shuffle with walker. Impression: 1. Lumbosacral Radiculopathy 2. Peripheral Neuropathy 3. Possible contribution of Restless Limbs syndrome (RLS). Suggest: Agree with Rx/adjustment for hypothyroidism Check B12, FT3, FT4, Fe++, TIBC, Ferritin PT with walker for gait safety Consider trial of pramipexole 0.25 mg QHS is leg pain continues to disrupt sleep. Thank you very much, Cullen San MD
[2019-05-24] MEDS ORDERED: PNEUMOC 13-VAL CONJ-DIP CRM/PF 0.5 ML DISP.SYRIN IM ONE (10:45)
[2019-05-24] MEDS: DOCUSATE SODIUM 100 MG CAPSULE (FP) PO SCH (10:58)
[2019-05-24] MEDS: amLODIPine BESYLATE 5 MG TABLET (FP) PO SCH (10:58)
[2019-05-24] MEDS: ASPIRIN COATED 81 MG TABLET.EC PO SCH (10:58)
[2019-05-24] MEDS: SERTRALINE HCL 25 MG TABLET (FP) PO SCH (10:58)
[2019-05-24] MEDS: PANTOPRAZOLE 40 MG TABLET (FP) PO SCH (10:58)
[2019-05-24] MEDS: LIDOCAINE 5% TOPICAL PATCH TP SCH (10:58)
[2019-05-24] MEDS: TAMSULOSIN HCL 0.4 MG CAP PO SCH (10:58)
--- NOTE | 2019-05-24 15:20 | PN ---
Physical Exam: SUBJECTIVE: Patient seen and examined. Pt i bed endorsing that he feels better today with no acute complaints OBJECTIVE: Vital Signs Period Temp Pulse Resp BP Sys/Bennett Pulse Ox Last 24 Hr 97.7 F-98.1 F 63-85 17-20 133-167/73-109 93-95 EYES: L eye with corneal opacity. EARS, NOSE, THROAT: Dry mucous membranes. NECK: Tracheostomy site clean, dry, and intact. LUNGS: Breath sounds equal, clear to auscultation bilaterally. No wheezes, and no crackles. No accessory muscle use. HEART: Regular rate and rhythm, normal S1 and S2 without murmur, rub or gallop. ABDOMEN: Soft, nontender, mildly distended, normoactive bowel sounds, no guarding, no rebound, no masses. Inguinal hernia and supraumbilical hernia palpated. EXTREMITIES: 2+ pulses, warm, well-perfused. No cyanosis. No clubbing. No peripheral edema. NEUROLOGICAL: Cranial nerves II-XII intact with exception of L eye. 5/5 muscle strength upper extremities bilaterally. 5/5 muscle strength on R lower extremity. 4/5 muscle strength proximally on L lower extremity. 2-3/5 muscle strength distally on L lower extremity. Decreased sensation on L lower extremity distally not isolated to one particular dermatome. Finger to nose intact. Heel to cummings intact. Laboratory Results - last 24 hr 05/23/19 05/23/19 05/23/19 18:00 18:00 18:00 WBC RBC Hgb Hct MCV MCH MCHC RDW Plt Count MPV Absolute Neuts (auto) Neutrophils % Lymphocytes % Monocytes % Eosinophils % Basophils % Nucleated RBC % Sodium Potassium Chloride Carbon Dioxide Anion Gap BUN Creatinine Est GFR (CKD-EPI)AfAm Est GFR (CKD-EPI)NonAf Random Glucose Calcium Free T4 Urine Color Cancelled Dk yellow Urine Appearance Cancelled Cloudy Urine pH Cancelled 5.0 Ur Specific [place] Cancelled 1.031 Urine Protein Cancelled 1+ H Urine Glucose (UA) Cancelled Negative Urine Ketones Cancelled 1+ H Urine Blood Cancelled Negative Urine Nitrite Cancelled Negative Urine Bilirubin Cancelled Negative Urine Urobilinogen Cancelled 1.0 Ur Leukocyte Esterase Cancelled Negative Urine WBC (Auto) Cancelled 4 Urine RBC (Auto) Cancelled 4 Urine Casts (Auto) Cancelled 60 U Pathogenic Cast Auto Cancelled 0 U Epithel Cells (Auto) Cancelled 5.6 U Sm Round Cell (Auto) Cancelled Negative Urine Crystals (Auto) Cancelled Urine Bacteria (Auto) Cancelled 2.9 Urine Yeast (Auto) Cancelled Ur Random Sodium 50 Ur Random Potassium 55.0 Ur Random Chloride 34 L 05/24/19 05/24/19 07:46 07:46 WBC 6.8 RBC 5.18 Hgb 16.4 Hct 48.3 MCV 93.2 MCH 31.6 MCHC 33.9 RDW 13.9 Plt Count 302 MPV 8.7 Absolute Neuts (auto) 4.7 Neutrophils % 69.7 Lymphocytes % 16.8 D Monocytes % 9.9 Eosinophils % 3.0 D Basophils % 0.6 Nucleated RBC % 0 Sodium 140 Potassium 5.0 Chloride 105 Carbon Dioxide 30 Anion Gap 5 L BUN 24.8 H Creatinine 1.2 Est GFR (CKD-EPI)AfAm 64.88 Est GFR (CKD-EPI)NonAf 55.98 Random Glucose 79 Calcium 9.3 Free T4 1.03 Urine Color Urine Appearance Urine pH Ur Specific [place] Urine Protein Urine Glucose (UA) Urine Ketones Urine Blood Urine Nitrite Urine Bilirubin Urine Urobilinogen Ur Leukocyte Esterase Urine WBC (Auto) Urine RBC (Auto) Urine Casts (Auto) U Pathogenic Cast Auto U Epithel Cells (Auto) U Sm Round Cell (Auto) Urine Crystals (Auto) Urine Bacteria (Auto) Urine Yeast (Auto) Ur Random Sodium Ur Random Potassium Ur Random Chloride Active Medications Generic Name Dose Route Start Last Admin Trade Name Freq PRN Reason Stop Dose Admin Acetaminophen 1,000 mg 05/23/19 05:45 Tylenol - PO Q6H PRN PAIN LEVEL 1 - 3 Albuterol Sulfate 2 puff 05/24/19 06:17 Ventolin Hfa Inhaler - IH Q6H PRN SHORTNESS OF BREATH Amlodipine Besylate 5 mg 05/24/19 10:00 05/24/19 10:58 Norvasc - PO 5 mg DAILY FRANSISCO Administration Aspirin 81 mg 05/24/19 10:00 05/24/19 10:58 Ecotrin - PO 81 mg DAILY FRANSISCO Administration Cyclobenzaprine HCl 5 mg 05/23/19 10:00 05/23/19 11:10 Cyclobenzaprine Hcl PO 5 mg DAILY FRANSISCO Administration Docusate Sodium 100 mg 05/23/19 10:00 05/24/19 10:58 Colace - PO 100 mg DAILY FRANSISCO Administration Heparin Sodium (Porcine) 5,000 unit 05/23/19 06:00 05/24/19 06:04 Heparin - SQ 5,000 unit TID FRANSISCO Administration Sodium Chloride 1,000 mls @ 75 mls/hr 05/23/19 06:30 05/24/19 07:12 Normal Saline - IV 75 mls/hr ASDIR FRANSISCO Administration Levothyroxine Sodium 88 mcg 05/24/19 07:00 05/24/19 07:07 Synthroid - PO 88 mcg ACBK FRANSISCO Administration Lidocaine 1 patch 05/23/19 10:00 05/24/19 10:58 Lidoderm Patch - TP 1 patch DAILY FRANSISCO Administration Miscellaneous 1 each 05/22/19 22:00 05/23/19 22:36 Lidoderm Patch Removal MC 1 each DAILY@2200 FRANSISCO Administration Miscellaneous 1 each 05/23/19 22:00 05/23/19 22:42 Lidoderm Patch Removal MC Not Given DAILY@2200 FRANSISCO Naloxone HCl 0.4 mg 05/23/19 05:45 Narcan - IVPUSH PRN PRN RESPIRATORY DEPRESSION Oxycodone HCl 5 mg 05/23/19 05:45 05/24/19 06:05 Roxicodone - PO 5 mg Q4H PRN Administration PAIN LEVEL 4 - 6 Oxycodone HCl 10 mg 05/23/19 05:45 05/24/19 00:50 Roxicodone - PO 10 mg Q4H PRN Administration PAIN LEVEL 7 - 10 Pantoprazole Sodium 40 mg 05/23/19 10:00 05/24/19 10:58 Protonix - PO 40 mg DAILY FRANSISCO Administration Sertraline HCl 25 mg 05/24/19 10:00 05/24/19 10:58 Zoloft - PO 25 mg DAILY FRANSISCO Administration Tamsulosin HCl 0.4 mg 05/24/19 08:30 05/24/19 10:58 Flomax - PO 0.4 mg DAILY@0830 FRANSISCO Administration ASSESSMENT/PLAN: Abel Black is an 83 year old male with a past medical history of hypertension, hypothyroidism, prostate cancer, laryngeal carcinoma (s/p resection, w/ vocal assist device) who is admitted for intractable back pain and difficulty ambulating. Intractable Back Pain/Difficulty Ambulating likely secondary to spinal canal stenosis MRI lumbar spine showed Normal alignment. L2/L3, L3/L4 disc bulges (HNP) with posterior osteophyte complexes. No cord compression. continue Flexeril 5mg daily and lidoderm patches pain control Neurosurgery :Agree with Rx/adjustment for hypothyroidism, Check B12, FT3, FT4 , Fe++, TIBC, Ferritin, PT with walker for gait safety IRMA/CKD unclear baseline 24.8/1.2 Pt on IV fluids Urine electrolytes: Na 50, k 55, Cl 34 Hypothyroidism Levothyroxine 88mcg PO daily. Rx adjustment? TSH 10.30 /FT4 1.03 Prophylaxis heparin 5000 units subq tid Code full code Visit type - Emergency Visit Emergency Visit: Yes ED Registration Date: 05/23/19 Care time: The patient presented to the Emergency Department on the above date and was hospitalized for further evaluation of their emergent condition. - New Patient This patient is new to me today: No - Critical Care Critical Care patient: No - Discharge Referral Referred to [facility] Med [facility] No ATTENDING PHYSICIAN STATEMENT I saw and evaluated the patient. I reviewed the resident's note and discussed the case with the resident. I agree with the resident's findings and plan as documented. SUBJECTIVE: OBJECTIVE: ASSESSMENT AND PLAN:
[2019-05-24] MEDS: CYCLOBENZAPRINE HCL 5 MG TABLET PO SCH (15:56)
[2019-05-24] MEDS: LIDOCAINE PATCH REMOVAL MC SCH ×2 (22:12)
[2019-05-25] MEDS: HEPARIN NA (PORCINE) 5,000 UNITS/ML 1ML VIAL SQ SCH ×3 (06:06→21:50)
[2019-05-25] MEDS: LEVOTHYROXINE NA 88 MCG TABLET (FP) PO SCH (06:06)
[2019-05-25] MEDS: oxyCODONE HCL 5 MG TABLET PO PRN ×2 (06:14→19:59)
[2019-05-25 10:12] LABS: BASO % 0.6 % (0-2.0); EOS % 2.2 % (0-4.5); HEMATOCRIT 45.2 % (35.4-49); LYMPH % 10.9 % (8-40); MCHC 33.1 g/dl (32.0-35.9); MEAN CELL VOLUME 93.5 fl (80-96); MEAN PLT VOLUME 9.2 fl (7.5-11.1); MONO % 8.1 % (3.8-10.2); NEUT % 78.2 % (42.8-82.8); PLATELET COUNT 273 K/MM3 (134-434); RBC 4.83 M/mm3 (4.00-5.60); RDW 14.3 % (11.9-15.9); WHITE BLOOD COUNT 5.9 K/mm3 (4.0-10.0)
[2019-05-25] MEDS: LIDOCAINE 5% TOPICAL PATCH TP SCH ×2 (10:25→16:18)
[2019-05-25] MEDS: TAMSULOSIN HCL 0.4 MG CAP PO SCH (10:25)
[2019-05-25] MEDS: DOCUSATE SODIUM 100 MG CAPSULE (FP) PO SCH ×2 (10:25→21:50)
[2019-05-25] MEDS: ASPIRIN COATED 81 MG TABLET.EC PO SCH (10:25)
[2019-05-25] MEDS: PANTOPRAZOLE 40 MG TABLET (FP) PO SCH (10:25)
[2019-05-25] MEDS: amLODIPine BESYLATE 5 MG TABLET (FP) PO SCH (10:25)
[2019-05-25] MEDS: SERTRALINE HCL 25 MG TABLET (FP) PO SCH (10:25)
[2019-05-25 10:47] LABS: BLOOD UREA NITROGEN 13.7 mg/dL (7-18); CALCIUM 8.6 mg/dL (8.5-10.1); CREATININE 0.9 mg/dL (0.55-1.3)
[2019-05-25] MEDS: CYCLOBENZAPRINE HCL 5 MG TABLET PO SCH (11:51)
[2019-05-25] MEDS ORDERED: CELECOXIB 200 MG CAPSULE PO ONE (13:30)
[2019-05-25] MEDS ORDERED: GLYCERIN 1 RECTAL SUPPOSITORY, ADULT RC ONE (14:30)
[2019-05-25] MEDS: POLYETHYLENE GLYCOL 3350 119 GM BTL PO SCH (16:16)
--- NOTE | 2019-05-25 20:55 | PN ---
Progress Note (short form) - Note Progress Note: Patient continues to have pain of left knee. deneis any numbness and tingling. Vital Signs Temperature 98.8 F 05/25/19 18:00 Pulse Rate 73 05/25/19 18:00 Respiratory Rate 20 05/25/19 18:00 Blood Pressure 134/72 05/25/19 18:00 O2 Sat by Pulse Oximetry (%) 96 05/24/19 21:00 GENERAL: The patient is awake, alert, and fully oriented, in no acute distress. HEAD: Normal with no signs of trauma. EYES: opacification of left eye legally blind ENT: s/p trachostomy with vocal assist device the speech NECK: Trachea midline, full range of motion, supple. LUNGS: Breath sounds equal, clear to auscultation bilaterally, no wheezes, no crackles, no accessory muscle use. HEART: Regular rate and rhythm, S1, S2 without murmur, rub or gallop. ABDOMEN: Soft, nontender, nondistended, normoactive bowel sounds, no guarding, no rebound, no hepatosplenomegaly, no masses. EXTREMITIES: 2+ pulses, warm, well-perfused, no edema. NEUROLOGICAL: Cranial nerves II through XII grossly intact. Normal speech, gait not observed. PSYCH: Normal mood, normal affect. SKIN: Warm, dry, normal turgor, no rashes or lesions noted CBCD WBC 5.9 K/mm3 (4.0-10.0) 05/25/19 08:58 RBC 4.83 M/mm3 (4.00-5.60) 05/25/19 08:58 Hgb 15.0 GM/dL (11.7-16.9) 05/25/19 08:58 Hct 45.2 % (35.4-49) 05/25/19 08:58 MCV 93.5 fl (80-96) 05/25/19 08:58 MCHC 33.1 g/dl (32.0-35.9) 05/25/19 08:58 RDW 14.3 % (11.9-15.9) 05/25/19 08:58 Plt Count 273 K/MM3 (134-434) 05/25/19 08:58 MPV 9.2 fl (7.5-11.1) 05/25/19 08:58 CMP Sodium 139 mmol/L (136-145) 05/25/19 08:58 Potassium 4.0 mmol/L (3.5-5.1) 05/25/19 08:58 Chloride 105 mmol/L (98-107) 05/25/19 08:58 Carbon Dioxide 28 mmol/L (21-32) 05/25/19 08:58 Anion Gap 6 MMOL/L (8-16) L 05/25/19 08:58 BUN 13.7 mg/dL (7-18) 05/25/19 08:58 Creatinine 0.9 mg/dL (0.55-1.3) 05/25/19 08:58 Random Glucose 123 mg/dL (74-106) H 05/25/19 08:58 Calcium 8.6 mg/dL (8.5-10.1) 05/25/19 08:58 Total Bilirubin 1.2 mg/dL (0.2-1) H 05/23/19 03:45 AST 27 U/L (15-37) 05/23/19 03:45 ALT 19 U/L (13-61) 05/23/19 03:45 Alkaline Phosphatase 82 U/L (45-117) 05/23/19 03:45 Total Protein 7.0 g/dl (6.4-8.2) 05/23/19 03:45 Albumin 4.1 g/dl (3.4-5.0) 05/23/19 03:45 Current Medications Generic Name Dose Route Start Last Admin Trade Name Freq PRN Reason Stop Dose Admin Acetaminophen 1,000 mg 05/23/19 05:45 Tylenol - PO Q6H PRN PAIN LEVEL 1 - 3 Albuterol Sulfate 2 puff 05/24/19 06:17 Ventolin Hfa Inhaler - IH Q6H PRN SHORTNESS OF BREATH Amlodipine Besylate 5 mg 05/24/19 10:00 05/25/19 10:25 Norvasc - PO 5 mg DAILY FRANSISCO Administration Aspirin 81 mg 05/24/19 10:00 05/25/19 10:25 Ecotrin - PO 81 mg DAILY FRANSISCO Administration Cyclobenzaprine HCl 5 mg 05/23/19 10:00 05/25/19 11:51 Cyclobenzaprine Hcl PO 5 mg DAILY FRANSISCO Administration Docusate Sodium 200 mg 05/25/19 22:00 Colace - PO HS FRANSISCO Heparin Sodium (Porcine) 5,000 unit 05/23/19 06:00 05/25/19 16:15 Heparin - SQ 5,000 unit TID FRANSISCO Administration Sodium Chloride 1,000 mls @ 75 mls/hr 05/23/19 06:30 05/24/19 20:08 Normal Saline - IV 75 mls/hr ASDIR FRANSISCO Administration Levothyroxine Sodium 88 mcg 05/24/19 07:00 05/25/19 06:06 Synthroid - PO 88 mcg ACBK FRANSISCO Administration Lidocaine 1 patch 05/23/19 10:00 05/25/19 10:25 Lidoderm Patch - TP 1 patch DAILY FRANSISCO Administration Lidocaine 1 patch 05/25/19 13:30 05/25/19 16:18 Lidoderm Patch - TP Not Given DAILY FRANSISCO Miscellaneous 1 each 05/25/19 22:00 Lidoderm Patch Removal MC DAILY@2200 FRANSISCO Naloxone HCl 0.4 mg 05/23/19 05:45 Narcan - IVPUSH PRN PRN RESPIRATORY DEPRESSION Oxycodone HCl 5 mg 05/23/19 05:45 05/25/19 19:59 Roxicodone - PO 5 mg Q4H PRN Administration PAIN LEVEL 4 - 6 Pantoprazole Sodium 40 mg 05/23/19 10:00 05/25/19 10:25 Protonix - PO 40 mg DAILY FRANSISCO Administration Polyethylene Glycol 17 gm 05/25/19 13:45 05/25/19 16:16 Miralax (For Daily Use) - PO 17 gm DAILY FRANSISCO Administration Sertraline HCl 25 mg 05/24/19 10:00 05/25/19 10:25 Zoloft - PO 25 mg DAILY FRANSISCO Administration Tamsulosin HCl 0.4 mg 05/24/19 08:30 05/25/19 10:25 Flomax - PO 0.4 mg DAILY@0830 FRANSISCO Administration US of abdomen: Cholelithiasis. 2. Heterogeneous liver with no evidence of biliary ductal dilatation. 3. Morphologically normal kidneys with no evidence of hydronephrosis or acute renal pathology. 4. No significant postvoid residual or prostatic enlargement. Limited study as described above. MRI of Lspine noted the report . ASSESSMENT AND PLAN: Abel Black is an 83 year old male with a PMHx of Laryngeal cancer and prostate cancer who is status post radical neck dissection with tracheostomy (s/p resection, w/ vocal assist device) speaks with assistance of phonic device , hypertension, hypothyroidism, prostate cancer is admitted for intractable back pain and difficulty ambulating. # Intractable Back Pain/with Difficulty Ambulating: pain control ,flexeril , neuro and neurosx consult appreciated, MRI report noted. DDD , will give him one dose of celebryx and will add Lidoderm patch on left knee # spinal canal stenosis: MRI lumbar spine reviewed seen by neurosx # IRMA/CKD: ON IVF is 1.2 improving # Hypothyroidism :on Levothyroxine 88mcg PO daily, TSH 10.30, will repeat TSH, FT4, will continue with 88mcg for now. discussed with the sons and the patient whether he religiously take the medication since TSH elevated. as per patient he does take it every day DVT px: heparin 5000 units subq tid Code: full code Visit type - Emergency Visit Emergency Visit: Yes ED Registration Date: 05/23/19 Care time: The patient presented to the Emergency Department on the above date and was hospitalized for further evaluation of their emergent condition. - New Patient This patient is new to me today: No - Critical Care Critical Care patient: No - Discharge Referral Referred to [facility] Med P.C.: No
[2019-05-25] MEDS: LIDOCAINE PATCH REMOVAL MC SCH (21:35)
[2019-05-26] MEDS: LEVOTHYROXINE NA 88 MCG TABLET (FP) PO SCH (06:50)
[2019-05-26] MEDS: HEPARIN NA (PORCINE) 5,000 UNITS/ML 1ML VIAL SQ SCH ×3 (06:51→22:34)
[2019-05-26] MEDS: TAMSULOSIN HCL 0.4 MG CAP PO SCH (08:38)
[2019-05-26] MEDS: CYCLOBENZAPRINE HCL 5 MG TABLET PO SCH (09:51)
[2019-05-26] MEDS: amLODIPine BESYLATE 5 MG TABLET (FP) PO SCH (09:51)
[2019-05-26] MEDS: PANTOPRAZOLE 40 MG TABLET (FP) PO SCH (09:51)
[2019-05-26] MEDS: POLYETHYLENE GLYCOL 3350 119 GM BTL PO SCH ×3 (09:51→22:41)
[2019-05-26] MEDS: SERTRALINE HCL 25 MG TABLET (FP) PO SCH (09:51)
[2019-05-26] MEDS: ASPIRIN COATED 81 MG TABLET.EC PO SCH (09:51)
[2019-05-26] MEDS: LIDOCAINE 5% TOPICAL PATCH TP SCH ×2 (10:01→10:02)
[2019-05-26] MEDS: SODIUM CHLORIDE 1,000 ML IV SCH (11:15)
--- NOTE | 2019-05-26 13:05 | PN ---
Physical Exam: SUBJECTIVE: Patient seen and examined at the bedside, there were no acute events overnight. Patient reports he still has some left leg pain but is doing better OBJECTIVE: Vital Signs Period Temp Pulse Resp BP Sys/Bennett Pulse Ox Last 24 Hr 98.4 F-98.8 F 67-73 20-20 128-134/50-72 EYES: L eye with corneal opacity. EARS, NOSE, THROAT: Dry mucous membranes. NECK: Tracheostomy site clean, dry, and intact. LUNGS: Breath sounds equal, clear to auscultation bilaterally. No wheezes, and no crackles. No accessory muscle use. HEART: Regular rate and rhythm, normal S1 and S2 without murmur, rub or gallop. ABDOMEN: Soft, nontender, mildly distended, normoactive bowel sounds, no guarding, no rebound, no masses. Inguinal hernia and supraumbilical hernia palpated. EXTREMITIES: 2+ pulses, warm, well-perfused. No cyanosis. No clubbing. No peripheral edema. NEUROLOGICAL: Cranial nerves II-XII intact with exception of L eye. 5/5 muscle strength upper extremities bilaterally. 5/5 muscle strength on R lower extremity. 4/5 muscle strength proximally on L lower extremity. 2-3/5 muscle strength distally on L lower extremity. Decreased sensation on L lower extremity distally not isolated to one particular dermatome. Finger to nose intact. Heel to cummings intact. Laboratory Results - last 24 hr 05/25/19 05/26/19 08:58 07:05 TSH 16.10 H D Free T4 1.01 Free T3 1.1 L Active Medications Generic Name Dose Route Start Last Admin Trade Name Freq PRN Reason Stop Dose Admin Acetaminophen 1,000 mg 05/23/19 05:45 Tylenol - PO Q6H PRN PAIN LEVEL 1 - 3 Albuterol Sulfate 2 puff 05/24/19 06:17 Ventolin Hfa Inhaler - IH Q6H PRN SHORTNESS OF BREATH Amlodipine Besylate 5 mg 05/24/19 10:00 05/26/19 09:51 Norvasc - PO 5 mg DAILY FRANSISCO Administration Aspirin 81 mg 05/24/19 10:00 05/26/19 09:51 Ecotrin - PO 81 mg DAILY FRANSISCO Administration Cyclobenzaprine HCl 5 mg 05/23/19 10:00 05/26/19 09:51 Cyclobenzaprine Hcl PO 5 mg DAILY FRANSISCO Administration Docusate Sodium 200 mg 05/25/19 22:00 05/25/19 21:50 Colace - PO 200 mg HS FRANSISCO Administration Heparin Sodium (Porcine) 5,000 unit 05/23/19 06:00 05/26/19 06:51 Heparin - SQ 5,000 unit TID FRANSISCO Administration Sodium Chloride 1,000 mls @ 75 mls/hr 05/23/19 06:30 05/26/19 11:15 Normal Saline - IV Not Given ASDIR FRANSISCO Levothyroxine Sodium 88 mcg 05/24/19 07:00 05/26/19 06:50 Synthroid - PO 88 mcg ACBK FRANSISCO Administration Lidocaine 1 patch 05/23/19 10:00 05/26/19 10:01 Lidoderm Patch - TP 1 patch DAILY FRANSISCO Administration Lidocaine 1 patch 05/25/19 13:30 05/26/19 10:02 Lidoderm Patch - TP 1 patch DAILY FRANSISCO Administration Miscellaneous 1 each 05/25/19 22:00 05/25/19 21:35 Lidoderm Patch Removal MC 1 each DAILY@2200 FRANSISCO Administration Naloxone HCl 0.4 mg 05/23/19 05:45 Narcan - IVPUSH PRN PRN RESPIRATORY DEPRESSION Oxycodone HCl 5 mg 05/23/19 05:45 05/25/19 19:59 Roxicodone - PO 5 mg Q4H PRN Administration PAIN LEVEL 4 - 6 Pantoprazole Sodium 40 mg 05/23/19 10:00 05/26/19 09:51 Protonix - PO 40 mg DAILY FRANSISCO Administration Polyethylene Glycol 17 gm 05/25/19 13:45 05/26/19 09:51 Miralax (For Daily Use) - PO 17 gm DAILY FRANSISCO Administration Sertraline HCl 25 mg 05/24/19 10:00 05/26/19 09:51 Zoloft - PO 25 mg DAILY FRANSISCO Administration Tamsulosin HCl 0.4 mg 05/24/19 08:30 05/26/19 08:38 Flomax - PO 0.4 mg DAILY@0830 FRANSISCO Administration Imaging: US of abdomen: Cholelithiasis. 2. Heterogeneous liver with no evidence of biliary ductal dilatation. 3. Morphologically normal kidneys with no evidence of hydronephrosis or acute renal pathology. 4. No significant postvoid residual or prostatic enlargement. Limited study as described above. MRI of [place] noted the report . ASSESSMENT/PLAN: Abel Black is an 83 year old male with a past medical history of hypertension, hypothyroidism, prostate cancer, laryngeal carcinoma (s/p resection, w/ vocal assist device) who is admitted for intractable back pain and difficulty ambulating. Intractable Back Pain/Difficulty Ambulating likely secondary to spinal canal stenosis MRI lumbar spine showed Normal alignment. L2/L3, L3/L4 disc bulges (HNP) with posterior osteophyte complexes. No cord compression. continue Flexeril 5mg daily and lidoderm patches Patient feeling better with celebryx, will continue with celebryx 100mgBID for 4 additional days pain control Neurosurgery :Agree with Rx/adjustment for hypothyroidism, Check B12, FT3, FT4 , Fe++, TIBC, Ferritin, PT with walker for gait safety IRMA/CKD unclear baseline 24.8/1.2 Pt on IV fluids, improving Hypothyroidism Levothyroxine 88mcg PO daily. Rx adjustment? > today patient's TSH was 16.10 ( prev: TSH 10.30 /FT4 1.03) - consulted endocrine, appreciate recommendations Prophylaxis heparin 5000 units subq tid Code full code Visit type - Emergency Visit Emergency Visit: Yes ED Registration Date: 05/23/19 Care time: The patient presented to the Emergency Department on the above date and was hospitalized for further evaluation of their emergent condition. - New Patient This patient is new to me today: Yes Date on this admission: 05/26/19 - Critical Care Critical Care patient: No - Discharge Referral Referred to [facility] Med [facility]C.: No ATTENDING PHYSICIAN STATEMENT I saw and evaluated the patient. I reviewed the resident's note and discussed the case with the resident. I agree with the resident's findings and plan as documented. SUBJECTIVE: OBJECTIVE: ASSESSMENT AND PLAN:
--- NOTE | 2019-05-26 20:23 | PN ---
Teaching Attending Note Name of Resident: Haritha Hull ATTENDING PHYSICIAN STATEMENT I saw and evaluated the patient. I reviewed the resident's note and discussed the case with the resident. I agree with the resident's findings and plan as documented. SUBJECTIVE: OBJECTIVE: Vital Signs Temperature 98.4 F 05/26/19 18:00 Pulse Rate 67 05/26/19 18:00 Respiratory Rate 20 05/26/19 18:00 Blood Pressure 101/54 L 05/26/19 18:00 O2 Sat by Pulse Oximetry (%) 96 05/26/19 09:00 GENERAL: The patient is awake, alert, and fully oriented, in no acute distress. HEAD: Normal with no signs of trauma. EYES: opacification of left eye legally blind ENT: s/p trachostomy with vocal assist device the speech NECK: Trachea midline, full range of motion, supple. LUNGS: Breath sounds equal, clear to auscultation bilaterally, no wheezes, no crackles, no accessory muscle use. HEART: Regular rate and rhythm, S1, S2 without murmur, rub or gallop. ABDOMEN: Soft, nontender, nondistended, normoactive bowel sounds, no guarding, no rebound, no hepatosplenomegaly, no masses. EXTREMITIES: 2+ pulses, warm, well-perfused, no edema. NEUROLOGICAL: Cranial nerves II through XII grossly intact. Normal speech, gait not observed. PSYCH: Normal mood, normal affect. SKIN: Warm, dry, normal turgor, no rashes or lesions noted CBCD WBC 5.9 K/mm3 (4.0-10.0) 05/25/19 08:58 RBC 4.83 M/mm3 (4.00-5.60) 05/25/19 08:58 Hgb 15.0 GM/dL (11.7-16.9) 05/25/19 08:58 Hct 45.2 % (35.4-49) 05/25/19 08:58 MCV 93.5 fl (80-96) 05/25/19 08:58 MCHC 33.1 g/dl (32.0-35.9) 05/25/19 08:58 RDW 14.3 % (11.9-15.9) 05/25/19 08:58 Plt Count 273 K/MM3 (134-434) 05/25/19 08:58 MPV 9.2 fl (7.5-11.1) 05/25/19 08:58 CMP Sodium 139 mmol/L (136-145) 05/25/19 08:58 Potassium 4.0 mmol/L (3.5-5.1) 05/25/19 08:58 Chloride 105 mmol/L (98-107) 05/25/19 08:58 Carbon Dioxide 28 mmol/L (21-32) 05/25/19 08:58 Anion Gap 6 MMOL/L (8-16) L 05/25/19 08:58 BUN 13.7 mg/dL (7-18) 05/25/19 08:58 Creatinine 0.9 mg/dL (0.55-1.3) 05/25/19 08:58 Random Glucose 123 mg/dL (74-106) H 05/25/19 08:58 Calcium 8.6 mg/dL (8.5-10.1) 05/25/19 08:58 Total Bilirubin 1.2 mg/dL (0.2-1) H 05/23/19 03:45 AST 27 U/L (15-37) 05/23/19 03:45 ALT 19 U/L (13-61) 05/23/19 03:45 Alkaline Phosphatase 82 U/L (45-117) 05/23/19 03:45 Total Protein 7.0 g/dl (6.4-8.2) 05/23/19 03:45 Albumin 4.1 g/dl (3.4-5.0) 05/23/19 03:45 Current Medications Generic Name Dose Route Start Last Admin Trade Name Teodoroq PRN Reason Stop Dose Admin Acetaminophen 1,000 mg 05/23/19 05:45 Tylenol - PO Q6H PRN PAIN LEVEL 1 - 3 Albuterol Sulfate 2 puff 05/24/19 06:17 Ventolin Hfa Inhaler - IH Q6H PRN SHORTNESS OF BREATH Amlodipine Besylate 5 mg 05/24/19 10:00 05/26/19 09:51 Norvasc - PO 5 mg DAILY FRANSISCO Administration Aspirin 81 mg 05/24/19 10:00 05/26/19 09:51 Ecotrin - PO 81 mg DAILY FRANSISCO Administration Celecoxib 100 mg 05/26/19 22:00 Celebrex - PO 09/18/19 21:59 BID FRANSISCO Cyclobenzaprine HCl 5 mg 05/23/19 10:00 05/26/19 09:51 Cyclobenzaprine Hcl PO 5 mg DAILY FRANSISCO Administration Docusate Sodium 200 mg 05/25/19 22:00 05/25/19 21:50 Colace - PO 200 mg HS FRANSISCO Administration Heparin Sodium (Porcine) 5,000 unit 05/23/19 06:00 05/26/19 15:00 Heparin - SQ 5,000 unit TID FRANSISCO Administration Sodium Chloride 1,000 mls @ 75 mls/hr 05/23/19 06:30 05/26/19 11:15 Normal Saline - IV Not Given ASDIR FRANSISCO Levothyroxine Sodium 88 mcg 05/24/19 07:00 05/26/19 06:50 Synthroid - PO 88 mcg ACBK FRANSISCO Administration Lidocaine 1 patch 05/23/19 10:00 05/26/19 10:01 Lidoderm Patch - TP 1 patch DAILY FRANSISCO Administration Lidocaine 1 patch 05/25/19 13:30 05/26/19 10:02 Lidoderm Patch - TP 1 patch DAILY FRANSISCO Administration Miscellaneous 1 each 05/25/19 22:00 05/25/19 21:35 Lidoderm Patch Removal MC 1 each DAILY@2200 FRANSISCO Administration Naloxone HCl 0.4 mg 05/23/19 05:45 Narcan - IVPUSH PRN PRN RESPIRATORY DEPRESSION Oxycodone HCl 5 mg 05/23/19 05:45 05/25/19 19:59 Roxicodone - PO 5 mg Q4H PRN Administration PAIN LEVEL 4 - 6 Pantoprazole Sodium 40 mg 05/23/19 10:00 05/26/19 09:51 Protonix - PO 40 mg DAILY FRANSISCO Administration Polyethylene Glycol 17 gm 05/26/19 17:30 05/26/19 17:48 Miralax (For Daily Use) - PO 17 gm BID FRANSISCO Administration Sertraline HCl 25 mg 05/24/19 10:00 05/26/19 09:51 Zoloft - PO 25 mg DAILY FRANSISCO Administration Tamsulosin HCl 0.4 mg 05/24/19 08:30 05/26/19 08:38 Flomax - PO 0.4 mg DAILY@0830 FRANSISCO Administration Home Medications Medication Instructions Recorded Albuterol Sulfate Inhaler - 1 puff IH PRN PRN 05/23/19 [Ventolin HFA Inhaler -] Amlodipine Besylate [Norvasc -] 5 mg PO DAILY 05/23/19 Aspirin [Aspirin EC] 81 mg PO DAILY 05/23/19 Cholecalciferol (Vitamin D3) 400 unit PO DAILY 05/23/19 [Vitamin D3] Cyanocobalamin [Vitamin B12 -] 2,000 mcg PO DAILY 05/23/19 Levothyroxine [Synthroid -] 88 mcg PO DAILY 05/23/19 Multivitamin [Multiple Vitamins] 1 tab PO DAILY 05/23/19 Sertraline HCl [Zoloft -] 25 mg PO DAILY 05/23/19 Tamsulosin HCl [Flomax] 0.4 mg PO DAILY 05/23/19 Tramadol HCl 50 mg PO DAILY 05/23/19 Hydrocortisone Valerate [Westcort 1 applic TP BID 05/24/19 0.2% Cream -] US of abdomen: Cholelithiasis. 2. Heterogeneous liver with no evidence of biliary ductal dilatation. 3. Morphologically normal kidneys with no evidence of hydronephrosis or acute renal pathology. 4. No significant postvoid residual or prostatic enlargement. Limited study as described above. MRI of Lspine noted the report . ASSESSMENT AND PLAN: Abel Black is an 83 year old male with a PMHx of Laryngeal cancer and prostate cancer who is status post radical neck dissection with tracheostomy (s/p resection, w/ vocal assist device) speaks with assistance of phonic device , hypertension, hypothyroidism, prostate cancer is admitted for intractable back pain and difficulty ambulating. # Intractable Back Pain/with Difficulty Ambulating: pain control ,flexeril , will add Celebryx and monitor daily , neuro and neurosx consult appreciated, MRI report noted. DDD , s/p celebryx improved his pain slightely , continue Lidoderm patch of left knee # spinal canal stenosis: MRI lumbar spine reviewed seen by neurosx # IRMA/CKD: ON IVF is 1.2 improving # Hypothyroidism :on Levothyroxine 88mcg PO daily, TSH 10.30-->repeat is 16, FT4 is nl, FT3 is low, discussed wit , will continue with 88mcg for now.possible he needs combination therapy T4 and T3, will see hiim in am , will repeat the levels in 6 weeks in an outpt setting # Hx of Laryngeal ca with hx of trach. with vocal assisst device # Left eye blindness DVT px: heparin 5000 units subq tid Code: full code
[2019-05-26] MEDS: DOCUSATE SODIUM 100 MG CAPSULE (FP) PO SCH (22:34)
[2019-05-26] MEDS: oxyCODONE HCL 5 MG TABLET PO PRN (22:34)
[2019-05-26] MEDS: CELECOXIB 100 MG CAPSULE PO SCH (22:41)
[2019-05-26] MEDS: LIDOCAINE PATCH REMOVAL MC SCH (23:07)
[2019-05-27] MEDS: LEVOTHYROXINE NA 88 MCG TABLET (FP) PO SCH (06:03)
[2019-05-27] MEDS: HEPARIN NA (PORCINE) 5,000 UNITS/ML 1ML VIAL SQ SCH ×3 (06:03→22:57)
[2019-05-27] MEDS: oxyCODONE HCL 5 MG TABLET PO PRN ×3 (06:24→22:56)
[2019-05-27 07:09] LABS: HEMATOCRIT 40.6 % (35.4-49); HEMOGLOBIN 13.8 GM/dL (11.7-16.9); MCH 31.5 pg (25.7-33.7); MEAN CELL VOLUME 92.6 fl (80-96); MEAN PLT VOLUME 9.4 fl (7.5-11.1); PLATELET COUNT 255 K/MM3 (134-434); RBC 4.38 M/mm3 (4.00-5.60); WHITE BLOOD COUNT 5.4 K/mm3 (4.0-10.0)
[2019-05-27 07:32] LABS: BLOOD UREA NITROGEN 12.6 mg/dL (7-18); CALCIUM 8.7 mg/dL (8.5-10.1); CREATININE 0.9 mg/dL (0.55-1.3); POTASSIUM 4.3 mmol/L (3.5-5.1)
[2019-05-27] MEDS: TAMSULOSIN HCL 0.4 MG CAP PO SCH (08:48)
[2019-05-27] MEDS: amLODIPine BESYLATE 5 MG TABLET (FP) PO SCH (09:18)
[2019-05-27] MEDS: PANTOPRAZOLE 40 MG TABLET (FP) PO SCH (09:18)
[2019-05-27] MEDS: SERTRALINE HCL 25 MG TABLET (FP) PO SCH (09:18)
[2019-05-27] MEDS: CYCLOBENZAPRINE HCL 5 MG TABLET PO SCH (09:18)
[2019-05-27] MEDS: ASPIRIN COATED 81 MG TABLET.EC PO SCH (09:19)
[2019-05-27] MEDS: LIDOCAINE 5% TOPICAL PATCH TP SCH ×2 (09:19→09:22)
[2019-05-27] MEDS: CELECOXIB 100 MG CAPSULE PO SCH ×2 (09:20→22:58)
[2019-05-27] MEDS: POLYETHYLENE GLYCOL 3350 119 GM BTL PO SCH ×2 (09:22→22:57)
--- NOTE | 2019-05-27 15:31 | PN ---
Progress Note (short form) - Note Progress Note: Patient remains in bed due to severe Left lower extremity radicular pain. He continues to complain of sharp gluteal pain which is aggravated by activity. MRI demonstrates foraminal stenosis with compressive disc protrusions on the Left at L45 and L5S1. The patient and his son were able to understand a discussion of the full range of treatment options. I explained that acute disc herniations frequently resolve with 8 weeks of conservative care and that surgery is reserved for progressive neurological deficits, cauda equina syndrome with bowel/bladder deficits or intractable pain despite maximum medical management. Understandably, the patient is not eager to undergo surgery although his current levels of pain are unacceptable to him. I discussed the potential role for epidural steroid injections or possible Radiofrequency ablation as non-operative solutions for his condition. If he continues to have symptoms despite these efforts, a minimally invasive focal decompressive procedure may be considered. At the current time, Physical Therapy and Injections represent the next logical steps in his care. All questions were answered.
--- NOTE | 2019-05-27 16:35 | PN ---
Physical Exam: SUBJECTIVE: Patient seen and examined. pt continues to complain of pain OBJECTIVE: Vital Signs Period Temp Pulse Resp BP Sys/Bennett Pulse Ox Last 24 Hr 97.9 F-98.4 F 63-73 18-21 95-135/52-66 95 EYES: L eye with corneal opacity. NECK: Tracheostomy site clean, dry, and intact. LUNGS: Breath sounds equal, clear to auscultation bilaterally. No wheezes, and no crackles. No accessory muscle use. HEART: Regular rate and rhythm, normal S1 and S2 without murmur, rub or gallop. ABDOMEN: Soft, nontender, mildly distended, normoactive bowel sounds, no guarding, no rebound, no masses. Inguinal hernia and supraumbilical hernia palpated. EXTREMITIES: 2+ pulses, warm, well-perfused. No cyanosis. No clubbing. No peripheral edema. NEUROLOGICAL: Cranial nerves II-XII intact with exception of L eye. 5/5 muscle strength upper extremities bilaterally. 5/5 muscle strength on R lower extremity. 4/5 muscle strength proximally on L lower extremity. 2-3/5 muscle strength distally on L lower extremity. Decreased sensation on L lower extremity distally not isolated to one particular dermatome. Finger to nose intact. Heel to cummings intact. Laboratory Results - last 24 hr 05/27/19 05/27/19 05:30 05:30 WBC 5.4 RBC 4.38 Hgb 13.8 Hct 40.6 MCV 92.6 MCH 31.5 MCHC 34.0 RDW 14.0 Plt Count 255 MPV 9.4 Sodium 139 Potassium 4.3 Chloride 104 Carbon Dioxide 29 Anion Gap 6 L BUN 12.6 Creatinine 0.9 Est GFR (CKD-EPI)AfAm 91.86 Est GFR (CKD-EPI)NonAf 79.26 Random Glucose 82 Calcium 8.7 Active Medications Generic Name Dose Route Start Last Admin Trade Name Freq PRN Reason Stop Dose Admin Acetaminophen 1,000 mg 05/23/19 05:45 05/27/19 09:24 Tylenol - PO 1,000 mg Q6H PRN Administration PAIN LEVEL 1 - 3 Albuterol Sulfate 2 puff 05/24/19 06:17 Ventolin Hfa Inhaler - IH Q6H PRN SHORTNESS OF BREATH Amlodipine Besylate 5 mg 05/24/19 10:00 05/27/19 09:18 Norvasc - PO 5 mg DAILY FRANSISCO Administration Aspirin 81 mg 05/24/19 10:00 05/27/19 09:19 Ecotrin - PO 81 mg DAILY FRANSISCO Administration Celecoxib 100 mg 05/26/19 22:00 05/27/19 09:20 Celebrex - PO 05/29/19 21:59 100 mg BID FRANSISCO Administration Cyclobenzaprine HCl 5 mg 05/23/19 10:00 05/27/19 09:18 Cyclobenzaprine Hcl PO 5 mg DAILY FRANSISCO Administration Docusate Sodium 200 mg 05/25/19 22:00 05/26/19 22:34 Colace - PO 200 mg HS FRANSISCO Administration Heparin Sodium (Porcine) 5,000 unit 05/23/19 06:00 05/27/19 13:39 Heparin - SQ 5,000 unit TID FRANSISCO Administration Sodium Chloride 1,000 mls @ 75 mls/hr 05/23/19 06:30 05/26/19 11:15 Normal Saline - IV Not Given ASDIR FRANSISCO Levothyroxine Sodium 88 mcg 05/24/19 07:00 05/27/19 06:03 Synthroid - PO 88 mcg ACBK FRANSISCO Administration Lidocaine 1 patch 05/23/19 10:00 05/27/19 09:19 Lidoderm Patch - TP 1 patch DAILY FRANSISCO Administration Lidocaine 1 patch 05/25/19 13:30 05/27/19 09:22 Lidoderm Patch - TP 1 patch DAILY FRANSISCO Administration Miscellaneous 1 each 05/25/19 22:00 05/26/19 23:07 Lidoderm Patch Removal MC 1 each DAILY@2200 FRANSISCO Administration Naloxone HCl 0.4 mg 05/23/19 05:45 Narcan - IVPUSH PRN PRN RESPIRATORY DEPRESSION Oxycodone HCl 5 mg 05/23/19 05:45 05/27/19 10:58 Roxicodone - PO 5 mg Q4H PRN Administration PAIN LEVEL 4 - 6 Pantoprazole Sodium 40 mg 05/23/19 10:00 05/27/19 09:18 Protonix - PO 40 mg DAILY FRANSISCO Administration Polyethylene Glycol 17 gm 05/26/19 17:30 05/27/19 09:22 Miralax (For Daily Use) - PO 17 gm BID FRANSISCO Administration Sertraline HCl 25 mg 05/24/19 10:00 09/16/19 09:18 Zoloft - PO 25 mg DAILY FRANSISCO Administration Tamsulosin HCl 0.4 mg 05/24/19 08:30 05/27/19 08:48 Flomax - PO 0.4 mg DAILY@0830 FRANSISCO Administration ASSESSMENT/PLAN: Abel Black is an 83 year old male with a past medical history of hypertension, hypothyroidism, prostate cancer, laryngeal carcinoma (s/p resection, w/ vocal assist device) who is admitted for intractable back pain and difficulty ambulating. Intractable Back Pain/Difficulty Ambulating likely secondary to spinal canal stenosis MRI lumbar spine showed Normal alignment. L2/L3, L3/L4 disc bulges (HNP) with posterior osteophyte complexes. No cord compression. continue Flexeril 5mg daily and lidoderm patches Patient feeling better with celebryx, will continue with celebryx 100mgBID until 05/29/19 pain control Neurosurgery discussed options with patients. for now PT and epidural steroid injections for symptomatic relief IRMA/CKD unclear baseline cr 0.6 today Pt on IV fluids, improving flomax 0.4mg PO daily Hypothyroidism Levothyroxine 88mcg PO daily. Rx adjustment? last TSH was 16.10 ( prev: TSH 10.30 /FT4 1.03). Pt might benefit from mix T3&T4 treatment as per endocrine/ F/ u o/p in 6 weeks Prophylaxis heparin 5000 units subq tid Code full code Visit type - Emergency Visit Emergency Visit: Yes ED Registration Date: 05/23/19 Care time: The patient presented to the Emergency Department on the above date and was hospitalized for further evaluation of their emergent condition. - New Patient This patient is new to me today: No - Critical Care Critical Care patient: No - Discharge Referral Referred to [facility] No ATTENDING PHYSICIAN STATEMENT I saw and evaluated the patient. I reviewed the resident's note and discussed the case with the resident. I agree with the resident's findings and plan as documented. SUBJECTIVE: OBJECTIVE: ASSESSMENT AND PLAN:
[2019-05-27] MEDS: SODIUM CHLORIDE 1,000 ML IV SCH (16:57)
[2019-05-27 20:02] VITALS: BMI 30.8
--- NOTE | 2019-05-27 21:04 | PN ---
Teaching Attending Note Name of Resident: Alexia Pedro ATTENDING PHYSICIAN STATEMENT I saw and evaluated the patient. I reviewed the resident's note and discussed the case with the resident. I agree with the resident's findings and plan as documented. SUBJECTIVE: Patient is feeling better with no acute distress. OBJECTIVE: Vital Signs Temperature 98.7 F 05/27/19 20:00 Pulse Rate 79 05/27/19 20:00 Respiratory Rate 19 05/27/19 20:00 Blood Pressure 120/56 L 05/27/19 20:00 O2 Sat by Pulse Oximetry (%) 95 05/27/19 08:12 GENERAL: The patient is awake, alert, and fully oriented, in no acute distress. HEAD: Normal with no signs of trauma. EYES: opacification of left eye legally blind ENT: s/p trachostomy with vocal assist device the speech NECK: Trachea midline, full range of motion, supple. LUNGS: Breath sounds equal, clear to auscultation bilaterally, no wheezes, no crackles, no accessory muscle use. HEART: Regular rate and rhythm, S1, S2 without murmur, rub or gallop. ABDOMEN: Soft, nontender, nondistended, normoactive bowel sounds, no guarding, no rebound, no hepatosplenomegaly, no masses. EXTREMITIES: 2+ pulses, warm, well-perfused, no edema. NEUROLOGICAL: Cranial nerves II through XII grossly intact. Normal speech, gait not observed. PSYCH: Normal mood, normal affect. SKIN: Warm, dry, normal turgor, no rashes or lesions noted CBCD WBC 5.4 K/mm3 (4.0-10.0) 05/27/19 05:30 RBC 4.38 M/mm3 (4.00-5.60) 05/27/19 05:30 Hgb 13.8 GM/dL (11.7-16.9) 05/27/19 05:30 Hct 40.6 % (35.4-49) 05/27/19 05:30 MCV 92.6 fl (80-96) 05/27/19 05:30 MCHC 34.0 g/dl (32.0-35.9) 05/27/19 05:30 RDW 14.0 % (11.9-15.9) 05/27/19 05:30 Plt Count 255 K/MM3 (134-434) 05/27/19 05:30 MPV 9.4 fl (7.5-11.1) 05/27/19 05:30 CMP Sodium 139 mmol/L (136-145) 05/27/19 05:30 Potassium 4.3 mmol/L (3.5-5.1) 05/27/19 05:30 Chloride 104 mmol/L (98-107) 05/27/19 05:30 Carbon Dioxide 29 mmol/L (21-32) 05/27/19 05:30 Anion Gap 6 MMOL/L (8-16) L 05/27/19 05:30 BUN 12.6 mg/dL (7-18) 05/27/19 05:30 Creatinine 0.9 mg/dL (0.55-1.3) 05/27/19 05:30 Random Glucose 82 mg/dL (74-106) 05/27/19 05:30 Calcium 8.7 mg/dL (8.5-10.1) 05/27/19 05:30 Total Bilirubin 1.2 mg/dL (0.2-1) H 05/23/19 03:45 AST 27 U/L (15-37) 05/23/19 03:45 ALT 19 U/L (13-61) 05/23/19 03:45 Alkaline Phosphatase 82 U/L (45-117) 05/23/19 03:45 Total Protein 7.0 g/dl (6.4-8.2) 05/23/19 03:45 Albumin 4.1 g/dl (3.4-5.0) 05/23/19 03:45 Current Medications Generic Name Dose Route Start Last Admin Trade Name Erin PRN Reason Stop Dose Admin Acetaminophen 1,000 mg 05/23/19 05:45 05/27/19 09:24 Tylenol - PO 1,000 mg Q6H PRN Administration PAIN LEVEL 1 - 3 Albuterol Sulfate 2 puff 05/24/19 06:17 Ventolin Hfa Inhaler - IH Q6H PRN SHORTNESS OF BREATH Amlodipine Besylate 5 mg 05/24/19 10:00 05/27/19 09:18 Norvasc - PO 5 mg DAILY FRANSISCO Administration Aspirin 81 mg 05/24/19 10:00 05/27/19 09:19 Ecotrin - PO 81 mg DAILY FRANSISCO Administration Celecoxib 100 mg 05/26/19 22:00 05/27/19 09:20 Celebrex - PO 05/29/19 21:59 100 mg BID FRANSISCO Administration Cyclobenzaprine HCl 5 mg 05/23/19 10:00 05/27/19 09:18 Cyclobenzaprine Hcl PO 5 mg DAILY FRANSISCO Administration Docusate Sodium 200 mg 05/25/19 22:00 05/26/19 22:34 Colace - PO 200 mg HS FRANSISCO Administration Heparin Sodium (Porcine) 5,000 unit 05/23/19 06:00 05/27/19 13:39 Heparin - SQ 5,000 unit TID FRANSISCO Administration Levothyroxine Sodium 88 mcg 05/24/19 07:00 05/27/19 06:03 Synthroid - PO 88 mcg ACBK FRANSISCO Administration Lidocaine 1 patch 05/23/19 10:00 05/27/19 09:19 Lidoderm Patch - TP 1 patch DAILY FRANSISCO Administration Lidocaine 1 patch 05/25/19 13:30 05/27/19 09:22 Lidoderm Patch - TP 1 patch DAILY FRANSISCO Administration Liothyronine Sodium 5 mcg 05/28/19 07:00 Cytomel - PO AM FRANSISCO Miscellaneous 1 each 05/25/19 22:00 05/26/19 23:07 Lidoderm Patch Removal MC 1 each DAILY@2200 FRANSISCO Administration Naloxone HCl 0.4 mg 05/23/19 05:45 Narcan - IVPUSH PRN PRN RESPIRATORY DEPRESSION Oxycodone HCl 5 mg 05/23/19 05:45 05/27/19 10:58 Roxicodone - PO 5 mg Q4H PRN Administration PAIN LEVEL 4 - 6 Pantoprazole Sodium 40 mg 05/23/19 10:00 05/27/19 09:18 Protonix - PO 40 mg DAILY FRANSISCO Administration Polyethylene Glycol 17 gm 05/26/19 17:30 05/27/19 09:22 Miralax (For Daily Use) - PO 17 gm BID FRANSISCO Administration Sertraline HCl 25 mg 05/24/19 10:00 05/27/19 09:18 Zoloft - PO 25 mg DAILY FRANSISCO Administration Tamsulosin HCl 0.4 mg 05/24/19 08:30 05/27/19 08:48 Flomax - PO 0.4 mg DAILY@0830 FRANSISCO Administration Home Medications Medication Instructions Recorded Albuterol Sulfate Inhaler - 1 puff IH PRN PRN 05/23/19 [Ventolin HFA Inhaler -] Amlodipine Besylate [Norvasc -] 5 mg PO DAILY 05/23/19 Aspirin [Aspirin EC] 81 mg PO DAILY 05/23/19 Cholecalciferol (Vitamin D3) 400 unit PO DAILY 05/23/19 [Vitamin D3] Cyanocobalamin [Vitamin B12 -] 2,000 mcg PO DAILY 05/23/19 Levothyroxine [Synthroid -] 88 mcg PO DAILY 05/23/19 Multivitamin [Multiple Vitamins] 1 tab PO DAILY 05/23/19 Sertraline HCl [Zoloft -] 25 mg PO DAILY 05/23/19 Tamsulosin HCl [Flomax] 0.4 mg PO DAILY 05/23/19 Tramadol HCl 50 mg PO DAILY 05/23/19 Hydrocortisone Valerate [Westcort 1 applic TP BID 05/24/19 0.2% Cream -] US of abdomen: Cholelithiasis. 2. Heterogeneous liver with no evidence of biliary ductal dilatation. 3. Morphologically normal kidneys with no evidence of hydronephrosis or acute renal pathology. 4. No significant postvoid residual or prostatic enlargement. Limited study as described above. MRI of Lspine noted the report . MRI demonstrates foraminal stenosis with compressive disc protrusions on the Left at L45 and L5S1 ASSESSMENT AND PLAN: Abel Black is an 83 year old male with a PMHx of Laryngeal cancer and prostate cancer who is status post radical neck dissection with tracheostomy (s/p resection, w/ vocal assist device) speaks with assistance of phonic device , hypertension, hypothyroidism, prostate cancer is admitted for intractable back pain and difficulty ambulating. # Intractable Back Pain/with Difficulty Ambulating: pain control ,flexeril , will add Celebryx and monitor daily , neuro and neurosx consult appreciated, MRI report noted. DDD , s/p celebryx improved his pain slightely , continue Lidoderm patch of left knee # spinal canal stenosis: MRI lumbar spine reviewed seen by neurosx As per neurosurgery: Patient with to severe Left lower extremity radicular pain. expalins to the patient and the family that acute disc herniations frequently resolve with 8 weeks of conservative care and that surgery is reserved for progressive neurological deficits, cauda equina syndrome with bowel /bladder deficits or intractable pain despite maximum medical management also suggested with epidural steroid injections or possible Radiofrequency ablation as non-operative solutions for his condition. If he continues to have symptoms despite these efforts, a minimally invasive focal decompressive procedure may be considered. # IRMA/CKD: ON IVF is 1.2 --0.9 today improving # Hypothyroidism :on Levothyroxine 88mcg PO daily, TSH 10.30-->repeat is 16, FT4 is nl, FT3 is low, discussed wit , will continue with 88mcg for now. added cytomel 5mcg daily , since Ft3 is in a low side ,repeat the levels in 6 weeks in an outpt setting # Hx of Laryngeal ca with hx of trach. with vocal assisst device # Left eye blindness DVT px: heparin 5000 units subq tid Code: full code
[2019-05-27] MEDS: DOCUSATE SODIUM 100 MG CAPSULE (FP) PO SCH (22:57)
[2019-05-27] MEDS: LIDOCAINE PATCH REMOVAL MC SCH (22:57)
--- NOTE | 2019-05-27 23:53 | CONSULT ---
Consult Consult Specialty:: endocrine Referred by:: dr.[email or web address] cruz Reason for Consultation:: hypothyroidism low t3 - History of Present Illness Chief Complaint: weak and poor appetite History of Present Illness: 83 year old male with a past medical history of hypothyroidism,hypertension, prostate cancer, laryngeal carcinoma (s/p resection, w/ vocal assist device) who presents with back pain with radiation down his leg. He has weakness, numbness, tingling, gait disturbance, unsteadiness. He states that he usually gets back pain but is usually controlled with tramadol at home. He states that he has had weakness in his gait . Additionally, he states that he has had constipation, poor oral intake, dizziness, lightheadedness,he was found to have significant residual hypothyroidism,and low t3. - Alcohol/Substance Use Hx Alcohol Use: No - Smoking History Smoking history: Unknown if ever smoked Home Medications - Allergies Allergies/Adverse Reactions: Allergies Allergy/AdvReac Type Severity Reaction Status Date / Time No Known Allergies Allergy Verified 05/22/19 19:54 - Home Medications Home Medications: Ambulatory Orders Albuterol Sulfate Inhaler - [Ventolin HFA Inhaler -] 1 puff IH PRN PRN 05/23/19 Amlodipine Besylate [Norvasc -] 5 mg PO DAILY 05/23/19 Aspirin [Aspirin EC] 81 mg PO DAILY 05/23/19 Cholecalciferol (Vitamin D3) [Vitamin D3] 400 unit PO DAILY 05/23/19 Cyanocobalamin [Vitamin B12 -] 2,000 mcg PO DAILY 05/23/19 Levothyroxine [Synthroid -] 88 mcg PO DAILY 05/23/19 Multivitamin [Multiple Vitamins] 1 tab PO DAILY 05/23/19 Sertraline HCl [Zoloft -] 25 mg PO DAILY 05/23/19 Tamsulosin HCl [Flomax] 0.4 mg PO DAILY 05/23/19 Tramadol HCl 50 mg PO DAILY 05/23/19 Hydrocortisone Valerate [Westcort 0.2% Cream -] 1 applic TP BID 05/24/19 Review of Systems - Review of Systems Constitutional: reports: Lethargy, Weakness Eyes: reports: No Symptoms HENT: reports: No Symptoms Neck: reports: No Symptoms, Other Cardiovascular: reports: Shortness of Breath Respiratory: reports: Exercise Intolerance, SOB on Exertion Gastrointestinal: reports: Bloating, Nausea Genitourinary: reports: No Symptoms Breasts: reports: No Symptoms Reported Musculoskeletal: reports: Muscle Weakness Integumentary: reports: No Symptoms Neurological: reports: Numbness, Unsteady Gait Endocrine: reports: Unexplained Weight Loss Physical Exam Vital Signs: Vital Signs Temperature 98.7 F 05/27/19 20:00 Pulse Rate 79 05/27/19 20:00 Respiratory Rate 19 05/27/19 20:00 Blood Pressure 120/56 L 05/27/19 20:00 O2 Sat by Pulse Oximetry (%) 95 05/27/19 08:12 Constitutional: Yes: Calm Eyes: Yes: EOM Intact HENT: Yes: Normocephalic Neck: Yes: Trachea Midline Cardiovascular: Yes: Bradycardia Respiratory: Yes: CTA Bilaterally Gastrointestinal: Yes: Normal Bowel Sounds ...Rectal Exam: Yes: Deferred Renal/: Yes: WNL Breast(s): Yes: WNL Musculoskeletal: Yes: Muscle Weakness Extremities: Yes: WNL Edema: No Neurological: Yes: Alert, Oriented Labs: CBC, BMP 05/27/19 05:30 05/27/19 05:30 Problem List - Problems (1) Hypothyroidism Code(s): E03.9 - HYPOTHYROIDISM, UNSPECIFIED Qualifiers: 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7 Laboratory Tests 05/25/19 05/26/19 08:58 07:05 TSH 16.10 H D Free T4 1.01 Free T3 1.1 L plan: synhthroid 88mcg plus cytomel 10mcg daily follow up total t3 and free t4 ,tsh in 4 weeks outpatient
[2019-05-28] MEDS: LEVOTHYROXINE NA 88 MCG TABLET (FP) PO SCH (06:59)
[2019-05-28] MEDS: HEPARIN NA (PORCINE) 5,000 UNITS/ML 1ML VIAL SQ SCH ×3 (06:59→22:15)
[2019-05-28] MEDS: LIOTHYRONINE SODIUM 5 MCG TABLET PO SCH (06:59)
--- NOTE | 2019-05-28 09:06 | PN ---
Teaching Attending Note Name of Resident: Alexia Pedro ATTENDING PHYSICIAN STATEMENT I saw and evaluated the patient. I reviewed the resident's note and discussed the case with the resident. I agree with the resident's findings and plan as documented. SUBJECTIVE: Patient continues to have back pain left side radiating to left knee, difficulty wit ambulation. OBJECTIVE: Vital Signs Temperature 97.5 F L 05/28/19 07:12 Pulse Rate 71 05/28/19 07:12 Respiratory Rate 20 05/28/19 07:12 Blood Pressure 132/71 05/28/19 07:12 O2 Sat by Pulse Oximetry (%) 95 05/27/19 08:12 GENERAL: The patient is awake, alert, and fully oriented, in no acute distress. HEAD: Normal with no signs of trauma. EYES: opacification of left eye legally blind ENT: s/p trachostomy with vocal assist device the speech NECK: Trachea midline, full range of motion, supple. LUNGS: Breath sounds equal, clear to auscultation bilaterally, no wheezes, no crackles, no accessory muscle use. HEART: Regular rate and rhythm, S1, S2 without murmur, rub or gallop. ABDOMEN: Soft, nontender, nondistended, normoactive bowel sounds, no guarding, no rebound, no hepatosplenomegaly, no masses. EXTREMITIES: 2+ pulses, warm, well-perfused, no edema. NEUROLOGICAL: Cranial nerves II through XII grossly intact. Normal speech, gait not observed. PSYCH: Normal mood, normal affect. SKIN: Warm, dry, normal turgor, no rashes or lesions noted CBCD WBC 5.4 K/mm3 (4.0-10.0) 05/27/19 05:30 RBC 4.38 M/mm3 (4.00-5.60) 05/27/19 05:30 Hgb 13.8 GM/dL (11.7-16.9) 05/27/19 05:30 Hct 40.6 % (35.4-49) 05/27/19 05:30 MCV 92.6 fl (80-96) 05/27/19 05:30 MCHC 34.0 g/dl (32.0-35.9) 05/27/19 05:30 RDW 14.0 % (11.9-15.9) 05/27/19 05:30 Plt Count 255 K/MM3 (134-434) 05/27/19 05:30 MPV 9.4 fl (7.5-11.1) 05/27/19 05:30 CMP Sodium 139 mmol/L (136-145) 05/27/19 05:30 Potassium 4.3 mmol/L (3.5-5.1) 05/27/19 05:30 Chloride 104 mmol/L (98-107) 05/27/19 05:30 Carbon Dioxide 29 mmol/L (21-32) 05/27/19 05:30 Anion Gap 6 MMOL/L (8-16) L 05/27/19 05:30 BUN 12.6 mg/dL (7-18) 05/27/19 05:30 Creatinine 0.9 mg/dL (0.55-1.3) 05/27/19 05:30 Random Glucose 82 mg/dL (74-106) 05/27/19 05:30 Calcium 8.7 mg/dL (8.5-10.1) 05/27/19 05:30 Total Bilirubin 1.2 mg/dL (0.2-1) H 05/23/19 03:45 AST 27 U/L (15-37) 05/23/19 03:45 ALT 19 U/L (13-61) 05/23/19 03:45 Alkaline Phosphatase 82 U/L (45-117) 05/23/19 03:45 Total Protein 7.0 g/dl (6.4-8.2) 05/23/19 03:45 Albumin 4.1 g/dl (3.4-5.0) 05/23/19 03:45 Current Medications Generic Name Dose Route Start Last Admin Trade Name Freq PRN Reason Stop Dose Admin Acetaminophen 1,000 mg 05/23/19 05:45 05/27/19 09:24 Tylenol - PO 1,000 mg Q6H PRN Administration PAIN LEVEL 1 - 3 Albuterol Sulfate 2 puff 05/24/19 06:17 Ventolin Hfa Inhaler - IH Q6H PRN SHORTNESS OF BREATH Amlodipine Besylate 5 mg 05/24/19 10:00 05/27/19 09:18 Norvasc - PO 5 mg DAILY FRANSISCO Administration Aspirin 81 mg 05/24/19 10:00 05/27/19 09:19 Ecotrin - PO 81 mg DAILY FRANSISCO Administration Celecoxib 100 mg 05/26/19 22:00 05/27/19 22:58 Celebrex - PO 05/29/19 21:59 100 mg BID FRANSISCO Administration Cyclobenzaprine HCl 5 mg 05/23/19 10:00 05/27/19 09:18 Cyclobenzaprine Hcl PO 5 mg DAILY FRANSISCO Administration Docusate Sodium 200 mg 05/25/19 22:00 05/27/19 22:57 Colace - PO 200 mg HS FRANSISCO Administration Heparin Sodium (Porcine) 5,000 unit 05/23/19 06:00 05/28/19 06:59 Heparin - SQ 5,000 unit TID FRANSISCO Administration Levothyroxine Sodium 88 mcg 05/24/19 07:00 05/28/19 06:59 Synthroid - PO 88 mcg ACBK FRANSISCO Administration Lidocaine 1 patch 05/23/19 10:00 05/27/19 09:19 Lidoderm Patch - TP 1 patch DAILY FRANSISCO Administration Lidocaine 1 patch 05/25/19 13:30 05/27/19 09:22 Lidoderm Patch - TP 1 patch DAILY FRANSISCO Administration Liothyronine Sodium 5 mcg 05/28/19 07:00 05/28/19 06:59 Cytomel - PO 5 mcg AM FRANSISCO Administration Miscellaneous 1 each 05/25/19 22:00 05/27/19 22:57 Lidoderm Patch Removal MC 1 each DAILY@2200 FRANSISCO Administration Naloxone HCl 0.4 mg 05/23/19 05:45 Narcan - IVPUSH PRN PRN RESPIRATORY DEPRESSION Oxycodone HCl 5 mg 05/23/19 05:45 05/27/19 22:56 Roxicodone - PO 5 mg Q4H PRN Administration PAIN LEVEL 4 - 6 Pantoprazole Sodium 40 mg 05/23/19 10:00 05/27/19 09:18 Protonix - PO 40 mg DAILY FRANSISCO Administration Polyethylene Glycol 17 gm 05/26/19 17:30 05/27/19 22:57 Miralax (For Daily Use) - PO 17 gm BID FRANSISCO Administration Sertraline HCl 25 mg 05/24/19 10:00 05/27/19 09:18 Zoloft - PO 25 mg DAILY FRANSISCO Administration Tamsulosin HCl 0.4 mg 05/24/19 08:30 05/27/19 08:48 Flomax - PO 0.4 mg DAILY@0830 FRANSISCO Administration Home Medications Medication Instructions Recorded Albuterol Sulfate Inhaler - 1 puff IH PRN PRN 05/23/19 [Ventolin HFA Inhaler -] Amlodipine Besylate [Norvasc -] 5 mg PO DAILY 05/23/19 Aspirin [Aspirin EC] 81 mg PO DAILY 05/23/19 Cholecalciferol (Vitamin D3) 400 unit PO DAILY 05/23/19 [Vitamin D3] Cyanocobalamin [Vitamin B12 -] 2,000 mcg PO DAILY 05/23/19 Levothyroxine [Synthroid -] 88 mcg PO DAILY 05/23/19 Multivitamin [Multiple Vitamins] 1 tab PO DAILY 05/23/19 Sertraline HCl [Zoloft -] 25 mg PO DAILY 05/23/19 Tamsulosin HCl [Flomax] 0.4 mg PO DAILY 05/23/19 Tramadol HCl 50 mg PO DAILY 05/23/19 Hydrocortisone Valerate [Westcort 1 applic TP BID 05/24/19 0.2% Cream -] US of abdomen: Cholelithiasis. 2. Heterogeneous liver with no evidence of biliary ductal dilatation. 3. Morphologically normal kidneys with no evidence of hydronephrosis or acute renal pathology. 4. No significant postvoid residual or prostatic enlargement. Limited study as described above. MRI of Lspine noted the report . MRI demonstrates foraminal stenosis with compressive disc protrusions on the Left at L45 and L5S1 ASSESSMENT AND PLAN: Abel Black is an 83 year old male with a PMHx of Laryngeal cancer and prostate cancer who is status post radical neck dissection with tracheostomy (s/p resection, w/ vocal assist device) speaks with assistance of phonic device , hypertension, hypothyroidism, prostate cancer is admitted for intractable back pain and difficulty ambulating. # Intractable Back Pain/with Difficulty Ambulating: continues , discussed with will get dr Tevin candelario to see the patient, pain control ,flexeril , will add Celebryx for 2 more days , if no improvement trial of steroid dose pack for short term, and monitor daily , neuro and neurosx consult appreciated , MRI report noted. DDD. continue Lidoderm patch on left knee and the back # spinal canal stenosis: MRI lumbar spine reviewed seen by neurosx As per neurosurgery: Patient with to severe Left lower extremity radicular pain. expalins to the patient and the family that acute disc herniations frequently resolve with 8 weeks of conservative care and that surgery is reserved for progressive neurological deficits, cauda equina syndrome with bowel /bladder deficits or intractable pain despite maximum medical management also suggested with epidural steroid injections or possible Radiofrequency ablation as non-operative solutions for his condition. If he continues to have symptoms despite these efforts, a minimally invasive focal decompressive procedure may be considered. # IRMA/CKD: ON IVF is 1.2 --0.9 today improving # Hypothyroidism :on Levothyroxine 88mcg PO daily, TSH 10.30-->repeat is 16, FT4 is nl, FT3 is low, discussed wit , will continue with 88mcg for now. added cytomel 5mcg daily , since Ft3 is in a low side ,repeat the levels in 6 weeks in an outpt setting, As per cardiac cath tech ; synhthroid 88mcg plus cytomel 5mcg daily, follow up total t3 and free t4 ,tsh in 4 weeks outpatient # Hx of Laryngeal ca with hx of trach. with vocal assisst device # Left eye blindness DVT px: heparin 5000 units subq tid Code: full code
[2019-05-28] MEDS: TAMSULOSIN HCL 0.4 MG CAP PO SCH (09:11)
[2019-05-28] MEDS: amLODIPine BESYLATE 5 MG TABLET (FP) PO SCH (09:11)
[2019-05-28] MEDS: PANTOPRAZOLE 40 MG TABLET (FP) PO SCH (09:11)
[2019-05-28] MEDS: CYCLOBENZAPRINE HCL 5 MG TABLET PO SCH (09:11)
[2019-05-28] MEDS: SERTRALINE HCL 25 MG TABLET (FP) PO SCH (09:12)
[2019-05-28] MEDS: oxyCODONE HCL 5 MG TABLET PO PRN ×3 (09:12→22:32)
[2019-05-28] MEDS: CELECOXIB 100 MG CAPSULE PO SCH ×2 (09:13→22:15)
[2019-05-28] MEDS: LIDOCAINE 5% TOPICAL PATCH TP SCH ×2 (09:13→09:14)
[2019-05-28] MEDS: ASPIRIN COATED 81 MG TABLET.EC PO SCH (09:13)
[2019-05-28] MEDS: POLYETHYLENE GLYCOL 3350 119 GM BTL PO SCH ×2 (09:14→22:17)
[2019-05-28] MEDS ORDERED: FENTANYL PATCH WASTE TD PRN (11:43)
[2019-05-28] MEDS ORDERED: fentaNYL 12mcg/hr PATCH.TD72 TD PRN (11:45)
--- NOTE | 2019-05-28 15:31 | PN ---
Physical Exam: SUBJECTIVE: Patient seen and examined.Pt continues to complain of pain responsive to oxycodone 5mg. OBJECTIVE: Vital Signs Period Temp Pulse Resp BP Sys/Bennett Pulse Ox Last 24 Hr 97.5 F-98.7 F 66-79 18-20 117-132/56-71 96 EYES: L eye with corneal opacity. NECK: Tracheostomy site clean, dry, and intact. LUNGS: Breath sounds equal, clear to auscultation bilaterally. No wheezes, and no crackles. No accessory muscle use. HEART: Regular rate and rhythm, normal S1 and S2 without murmur, rub or gallop. ABDOMEN: Soft, nontender, mildly distended, normoactive bowel sounds, no guarding, no rebound, no masses. Inguinal hernia and supraumbilical hernia palpated. EXTREMITIES: 2+ pulses, warm, well-perfused. No cyanosis. No clubbing. No peripheral edema. NEUROLOGICAL: Cranial nerves II-XII intact with exception of L eye. 5/5 muscle strength upper extremities bilaterally. 5/5 muscle strength on R lower extremity. 4/5 muscle strength proximally on L lower extremity. 2-3/5 muscle strength distally on L lower extremity. Decreased sensation on L lower extremity distally not isolated to one particular dermatome. Finger to nose intact. Heel to cummings intact. Active Medications Generic Name Dose Route Start Last Admin Trade Name Freq PRN Reason Stop Dose Admin Acetaminophen 1,000 mg 05/23/19 05:45 05/27/19 09:24 Tylenol - PO 1,000 mg Q6H PRN Administration PAIN LEVEL 1 - 3 Albuterol Sulfate 2 puff 05/24/19 06:17 Ventolin Hfa Inhaler - IH Q6H PRN SHORTNESS OF BREATH Amlodipine Besylate 5 mg 05/24/19 10:00 05/28/19 09:11 Norvasc - PO 5 mg DAILY FRANSISCO Administration Aspirin 81 mg 05/24/19 10:00 05/28/19 09:13 Ecotrin - PO 81 mg DAILY FRANSISCO Administration Celecoxib 100 mg 05/26/19 22:00 05/28/19 09:13 Celebrex - PO 05/29/19 21:59 100 mg BID FRANSISCO Administration Cyclobenzaprine HCl 5 mg 05/23/19 10:00 05/28/19 09:11 Cyclobenzaprine Hcl PO 5 mg DAILY FRANSISCO Administration Docusate Sodium 200 mg 05/25/19 22:00 05/27/19 22:57 Colace - PO 200 mg HS FRANSISCO Administration Fentanyl 1 patch 05/28/19 11:45 05/28/19 12:37 Duragesic 12mcg Patch - TD 06/04/19 11:43 1 patch Q72H PRN Administration PAIN Heparin Sodium (Porcine) 5,000 unit 05/23/19 06:00 05/28/19 13:44 Heparin - SQ 5,000 unit TID FRANSISCO Administration Levothyroxine Sodium 88 mcg 05/24/19 07:00 05/28/19 06:59 Synthroid - PO 88 mcg ACBK FRANSISCO Administration Lidocaine 1 patch 05/23/19 10:00 05/28/19 09:13 Lidoderm Patch - TP Not Given DAILY FRANSISCO Lidocaine 1 patch 05/25/19 13:30 05/28/19 09:14 Lidoderm Patch - TP Not Given DAILY FRANSISCO Liothyronine Sodium 5 mcg 05/28/19 07:00 05/28/19 06:59 Cytomel - PO 5 mcg AM FRANSISCO Administration Miscellaneous 1 each 05/25/19 22:00 05/27/19 22:57 Lidoderm Patch Removal MC 1 each DAILY@2200 FRANSISCO Administration Miscellaneous 1 each 05/28/19 11:43 Duragesic Patch Waste TD PRN PRN PAIN Naloxone HCl 0.4 mg 05/23/19 05:45 Narcan - IVPUSH PRN PRN RESPIRATORY DEPRESSION Oxycodone HCl 5 mg 05/23/19 05:45 05/28/19 09:12 Roxicodone - PO 5 mg Q4H PRN Administration PAIN LEVEL 4 - 6 Pantoprazole Sodium 40 mg 05/23/19 10:00 05/28/19 09:11 Protonix - PO 40 mg DAILY FRANSISCO Administration Polyethylene Glycol 17 gm 05/26/19 17:30 05/28/19 09:14 Miralax (For Daily Use) - PO 17 gm BID FRANSISCO Administration Sertraline HCl 25 mg 05/24/19 10:00 05/28/19 09:12 Zoloft - PO 25 mg DAILY FRANSISCO Administration Tamsulosin HCl 0.4 mg 05/24/19 08:30 05/28/19 09:11 Flomax - PO 0.4 mg DAILY@0830 FRANSISCO Administration ASSESSMENT/PLAN: Abel Black is an 83 year old male with a past medical history of hypertension, hypothyroidism, prostate cancer, laryngeal carcinoma (s/p resection, w/ vocal assist device) who is admitted for intractable back pain and difficulty ambulating. Intractable Back Pain/Difficulty Ambulating likely secondary to spinal canal stenosis MRI lumbar spine showed Normal alignment. L2/L3, L3/L4 disc bulges (HNP) with posterior osteophyte complexes. No cord compression. continue Flexeril 5mg daily and lidoderm patches will continue with celebryx 100mgBID until 05/29/19 pain control with oxy 5mg PO and Fentanyl patch 12 mcg Neurosurgery discussed options with patient. considering PT and epidural steroid injections for symptomatic relief IRMA/CKD unclear baseline cr stable D/C fluids flomax 0.4mg PO daily Hypothyroidism Levothyroxine 88mcg PO daily. last TSH was 16.10 ( prev: TSH 10.30 /FT4 1.03) . Pt started on cytomel 5 mcg PO am F/u o/p in 4 weeks Prophylaxis heparin 5000 units subq tid Code full code Visit type - Emergency Visit Emergency Visit: Yes ED Registration Date: 05/23/19 Care time: The patient presented to the Emergency Department on the above date and was hospitalized for further evaluation of their emergent condition. - New Patient This patient is new to me today: No - Critical Care Critical Care patient: No - Discharge Referral Referred to [facility] Med P.C.: No ATTENDING PHYSICIAN STATEMENT I saw and evaluated the patient. I reviewed the resident's note and discussed the case with the resident. I agree with the resident's findings and plan as documented. SUBJECTIVE: OBJECTIVE: ASSESSMENT AND PLAN:
[2019-05-28] MEDS ORDERED: PT OWN MED DRAWER 7, Y5N ONE ×2 (21:28→23:36)
[2019-05-28] MEDS: DOCUSATE SODIUM 100 MG CAPSULE (FP) PO SCH (22:15)
[2019-05-28] MEDS: LIDOCAINE PATCH REMOVAL MC SCH (22:24)
[2019-05-29] MEDS ORDERED: PT OWN MED DRAWER 7, Y5N ONE ×2 (05:47→09:58)
[2019-05-29] MEDS: HEPARIN NA (PORCINE) 5,000 UNITS/ML 1ML VIAL SQ SCH ×3 (06:43→21:39)
[2019-05-29] MEDS: LIOTHYRONINE SODIUM 5 MCG TABLET PO SCH (06:43)
[2019-05-29] MEDS: LEVOTHYROXINE NA 88 MCG TABLET (FP) PO SCH (06:43)
[2019-05-29] MEDS: CELECOXIB 100 MG CAPSULE PO SCH (10:05)
[2019-05-29] MEDS: SERTRALINE HCL 25 MG TABLET (FP) PO SCH (10:06)
[2019-05-29] MEDS: ASPIRIN COATED 81 MG TABLET.EC PO SCH (10:06)
[2019-05-29] MEDS: PANTOPRAZOLE 40 MG TABLET (FP) PO SCH (10:06)
[2019-05-29] MEDS: LIDOCAINE 5% TOPICAL PATCH TP SCH ×2 (10:06)
[2019-05-29] MEDS: TAMSULOSIN HCL 0.4 MG CAP PO SCH (10:06)
[2019-05-29] MEDS: amLODIPine BESYLATE 5 MG TABLET (FP) PO SCH (10:06)
[2019-05-29] MEDS: oxyCODONE HCL 5 MG TABLET PO PRN (10:07)
[2019-05-29] MEDS: POLYETHYLENE GLYCOL 3350 119 GM BTL PO SCH ×2 (10:12→21:39)
[2019-05-29] MEDS: CYCLOBENZAPRINE HCL 5 MG TABLET PO SCH (12:21)
--- NOTE | 2019-05-29 13:41 | PN ---
Progress Note (short form) - Note Progress Note: Patient continues to have pain. Agree with plans for Pain Management and Physical Therapy/Rehab
--- NOTE | 2019-05-29 15:31 | PN ---
Physical Exam: SUBJECTIVE: Patient seen and examined. Pt continues to complain of pain which responds to current pain regimen OBJECTIVE: Vital Signs Period Temp Pulse Resp BP Sys/Bennett Pulse Ox Last 24 Hr 97.8 F-98.6 F 75-87 18-21 125-142/71-95 96 EYES: L eye with corneal opacity. NECK: Tracheostomy site clean, dry, and intact with audible secretions LUNGS: Breath sounds equal, clear to auscultation bilaterally. No wheezes, and no crackles. No accessory muscle use. HEART: Regular rate and rhythm, normal S1 and S2 without murmur, rub or gallop. ABDOMEN: Soft, nontender, mildly distended, normoactive bowel sounds, no guarding, no rebound, no masses. Inguinal hernia and supraumbilical hernia palpated. EXTREMITIES: 2+ pulses, warm, well-perfused. No cyanosis. No clubbing. No peripheral edema. NEUROLOGICAL: Cranial nerves II-XII intact with exception of L eye. 5/5 muscle strength upper extremities bilaterally. 5/5 muscle strength on R lower extremity. 4/5 muscle strength proximally on L lower extremity. 2-3/5 muscle strength distally on L lower extremity. Sensation intact. Active Medications Generic Name Dose Route Start Last Admin Trade Name Freq PRN Reason Stop Dose Admin Acetaminophen 1,000 mg 05/23/19 05:45 05/27/19 09:24 Tylenol - PO 1,000 mg Q6H PRN Administration PAIN LEVEL 1 - 3 Albuterol Sulfate 2 puff 05/24/19 06:17 Ventolin Hfa Inhaler - IH Q6H PRN SHORTNESS OF BREATH Amlodipine Besylate 5 mg 05/24/19 10:00 05/29/19 10:06 Norvasc - PO 5 mg DAILY FRANSISCO Administration Aspirin 81 mg 05/24/19 10:00 05/29/19 10:06 Ecotrin - PO 81 mg DAILY FRANSISCO Administration Celecoxib 100 mg 05/26/19 22:00 05/29/19 10:05 Celebrex - PO 05/29/19 21:59 100 mg BID FRANSISCO Administration Cyclobenzaprine HCl 5 mg 05/23/19 10:00 05/29/19 12:21 Cyclobenzaprine Hcl PO 5 mg DAILY FRANSISCO Administration Docusate Sodium 200 mg 05/25/19 22:00 05/28/19 22:15 Colace - PO 200 mg HS FRANSISCO Administration Fentanyl 1 patch 05/28/19 11:45 05/28/19 12:37 Duragesic 12mcg Patch - TD 06/04/19 11:43 1 patch Q72H PRN Administration PAIN Heparin Sodium (Porcine) 5,000 unit 05/23/19 06:00 05/29/19 15:22 Heparin - SQ 5,000 unit TID FRANSISCO Administration Levothyroxine Sodium 88 mcg 05/24/19 07:00 05/29/19 06:43 Synthroid - PO 88 mcg ACBK FRANSISCO Administration Lidocaine 1 patch 05/23/19 10:00 05/29/19 10:06 Lidoderm Patch - TP 1 patch DAILY FRANSISCO Administration Lidocaine 1 patch 05/25/19 13:30 05/29/19 10:06 Lidoderm Patch - TP 1 patch DAILY FRANSISCO Administration Liothyronine Sodium 5 mcg 05/28/19 07:00 05/29/19 06:43 Cytomel - PO 5 mcg AM FRANSISCO Administration Miscellaneous 1 each 05/25/19 22:00 05/28/19 22:24 Lidoderm Patch Removal MC 1 each DAILY@2200 FRANSISCO Administration Miscellaneous 1 each 05/28/19 11:43 Duragesic Patch Waste TD PRN PRN PAIN Naloxone HCl 0.4 mg 05/23/19 05:45 Narcan - IVPUSH PRN PRN RESPIRATORY DEPRESSION Oxycodone HCl 2.5 mg 05/28/19 18:12 05/29/19 10:07 Roxicodone - PO 2.5 mg Q6H PRN Administration PAIN LEVEL 4 - 6 Pantoprazole Sodium 40 mg 05/23/19 10:00 05/29/19 10:06 Protonix - PO 40 mg DAILY FRANSISCO Administration Polyethylene Glycol 17 gm 05/26/19 17:30 05/29/19 10:12 Miralax (For Daily Use) - PO 17 gm BID FRANSISCO Administration Sertraline HCl 25 mg 05/24/19 10:00 05/29/19 10:06 Zoloft - PO 25 mg DAILY FRANSISCO Administration Tamsulosin HCl 0.4 mg 05/24/19 08:30 05/29/19 10:06 Flomax - PO 0.4 mg DAILY@0830 FRANSISCO Administration ASSESSMENT/PLAN: Abel Black is an 83 year old male with a past medical history of hypertension, hypothyroidism, prostate cancer, laryngeal carcinoma (s/p resection, w/ vocal assist device) who is admitted for intractable back pain and difficulty ambulating. Intractable Back Pain/Difficulty Ambulating likely secondary to spinal canal stenosis MRI lumbar spine showed Normal alignment. L2/L3, L3/L4 disc bulges (HNP) with posterior osteophyte complexes. No cord compression. continue Flexeril 5mg daily and lidoderm patches will continue with celebryx 100mgBID until 05/29/19 pain control with oxy 2.5 mg PO Q6h and Fentanyl patch 12 mcg Neurosurgery discussed options with patient. considering PT and epidural steroid injections for symptomatic relief by pain management IRMA/CKD unclear baseline cr stable D/C fluids flomax 0.4mg PO daily Hypothyroidism Levothyroxine 88mcg PO daily. last TSH was 16.10 ( prev: TSH 10.30 /FT4 1.03) . Pt started on cytomel 5 mcg PO am F/u o/p in 4 weeks Prophylaxis heparin 5000 units subq tid DISPO: approved at [facility] [facility] for rehab Code Full code Visit type - Emergency Visit Emergency Visit: Yes ED Registration Date: 05/23/19 Care time: The patient presented to the Emergency Department on the above date and was hospitalized for further evaluation of their emergent condition. - New Patient This patient is new to me today: No - Critical Care Critical Care patient: No - Discharge Referral Referred to [facility] Med P.C.: No ATTENDING PHYSICIAN STATEMENT I saw and evaluated the patient. I reviewed the resident's note and discussed the case with the resident. I agree with the resident's findings and plan as documented. SUBJECTIVE: OBJECTIVE: ASSESSMENT AND PLAN:
--- NOTE | 2019-05-29 20:13 | PN ---
Teaching Attending Note Name of Resident: Smita Duff ATTENDING PHYSICIAN STATEMENT I saw and evaluated the patient. I reviewed the resident's note and discussed the case with the resident. I agree with the resident's findings and plan as documented. SUBJECTIVE: pain inback has improved . radiates to L LE. OBJECTIVE: NAD. L corneal ossification. no facail droop. trach hole CV: RRR Lungs: CTAB Abd:soft, NT, ND , NL BS Neuro of LE: strength 5/5 in LE proximally and distally bilaterally . sensation to light touch nL. refelxes 2+ knee jerk ASSESSMENT AND PLAN: 83 year old male with a PMHx of Laryngeal cancer and prostate cancer who is status post radical neck dissection with tracheostomy , hypertension, hypothyroidism,s admitted for intractable back pain and difficulty ambulating. 1- Lower back pain, due to bulging diskl and radiculopathy. neuro exam as above. - PT - pain control - pain consult for steroid injection 2- IRMA : resolved 3- Hypothyroidism : cont synthroid and Cytomel daily . repeat TFTS in 6 weeks 4- DVT Px: heparin SQ possible dc tomorrow . will need rehab
[2019-05-29] MEDS: DOCUSATE SODIUM 100 MG CAPSULE (FP) PO SCH (21:38)
[2019-05-29] MEDS: LIDOCAINE PATCH REMOVAL MC SCH (22:45)
--- NOTE | 2019-05-29 23:05 | PN ---
Progress Note, Physician Chief Complaint: ambulating with assist,no complaint - Current Medication List Current Medications: Active Medications Acetaminophen (Tylenol -) 1,000 mg PO Q6H PRN PRN Reason: PAIN LEVEL 1 - 3 Last Admin: 05/27/19 09:24 Dose: 1,000 mg Albuterol Sulfate (Ventolin Hfa Inhaler -) 2 puff IH Q6H PRN PRN Reason: SHORTNESS OF BREATH Amlodipine Besylate (Norvasc -) 5 mg PO DAILY [facility] Last Admin: 05/29/19 10:06 Dose: 5 mg Aspirin (Ecotrin -) 81 mg PO DAILY [facility] Last Admin: 05/29/19 10:06 Dose: 81 mg Cyclobenzaprine HCl (Cyclobenzaprine Hcl) 5 mg PO DAILY [facility] Last Admin: 05/29/19 12:21 Dose: 5 mg Docusate Sodium (Colace -) 200 mg PO HS [facility] Last Admin: 05/29/19 21:38 Dose: Not Given Fentanyl (Duragesic 12mcg Patch -) 1 patch TD Q72H PRN PRN Reason: PAIN Stop: 06/04/19 11:43 Last Admin: 05/28/19 12:37 Dose: 1 patch Heparin Sodium (Porcine) (Heparin -) 5,000 unit SQ TID [facility] Last Admin: 05/29/19 21:39 Dose: 5,000 unit Levothyroxine Sodium (Synthroid -) 88 mcg PO ACBK [facility] Last Admin: 05/29/19 06:43 Dose: 88 mcg Lidocaine (Lidoderm Patch -) 1 patch TP DAILY [facility] Last Admin: 05/29/19 10:06 Dose: 1 patch Lidocaine (Lidoderm Patch -) 1 patch TP DAILY [facility] Last Admin: 05/29/19 10:06 Dose: 1 patch Liothyronine Sodium (Cytomel -) 5 mcg PO AM [facility] Last Admin: 05/29/19 06:43 Dose: 5 mcg Miscellaneous (Lidoderm Patch Removal) 1 each MC DAILY@2200 [facility] Last Admin: 05/28/19 22:24 Dose: 1 each Miscellaneous (Duragesic Patch Waste) 1 each TD PRN PRN PRN Reason: PAIN Naloxone HCl (Narcan -) 0.4 mg IVPUSH PRN PRN PRN Reason: RESPIRATORY DEPRESSION Oxycodone HCl (Roxicodone -) 2.5 mg PO Q6H PRN PRN Reason: PAIN LEVEL 4 - 6 Last Admin: 05/29/19 10:07 Dose: 2.5 mg Pantoprazole Sodium (Protonix -) 40 mg PO DAILY [facility] Last Admin: 05/29/19 10:06 Dose: 40 mg Polyethylene Glycol (Miralax (For Daily Use) -) 17 gm PO BID [facility] Last Admin: 05/29/19 21:39 Dose: Not Given Sertraline HCl (Zoloft -) 25 mg PO DAILY [facility] Last Admin: 05/29/19 10:06 Dose: 25 mg Tamsulosin HCl (Flomax -) 0.4 mg PO DAILY@0830 [facility] Last Admin: 05/29/19 10:06 Dose: 0.4 mg - Objective Vital Signs: Vital Signs Temperature 98.3 F 05/29/19 18:00 Pulse Rate 71 05/29/19 18:00 Respiratory Rate 20 05/29/19 18:00 Blood Pressure 137/72 05/29/19 18:00 O2 Sat by Pulse Oximetry (%) 96 05/29/19 10:10 Constitutional: Yes: Calm Eyes: Yes: EOM Intact HENT: Yes: Normocephalic Neck: Yes: Trachea Midline Cardiovascular: Yes: Regular Rate and Rhythm Respiratory: Yes: CTA Bilaterally Gastrointestinal: Yes: Normal Bowel Sounds ...Rectal Exam: Yes: Deferred Genitourinary: Yes: WNL Musculoskeletal: Yes: WNL Extremities: Yes: Delayed Capillary Refill Edema: No Neurological: Yes: Alert, Oriented Labs: CBC, BMP 05/27/19 05:30 05/27/19 05:30 Problem List - Problems (1) Hypothyroidism Code(s): E03.9 - HYPOTHYROIDISM, UNSPECIFIED Qualifiers: 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
[2019-05-30] MEDS: LIOTHYRONINE SODIUM 5 MCG TABLET PO SCH (06:19)
[2019-05-30] MEDS: LEVOTHYROXINE NA 88 MCG TABLET (FP) PO SCH (06:19)
[2019-05-30 06:59] VITALS: PULSE 80
[2019-05-30 08:36] LABS: BASO % 0.9 % (0-2.0); EOS % 2.1 % (0-4.5); HEMOGLOBIN 15.9 GM/dL (11.7-16.9); LYMPH % 7.9 % (8-40); MCH 31.5 pg (25.7-33.7); MCHC 33.7 g/dl (32.0-35.9); MEAN CELL VOLUME 93.4 fl (80-96); MEAN PLT VOLUME 9.9 fl (7.5-11.1); MONO % 7.4 % (3.8-10.2); NEUT % 81.7 % (42.8-82.8); PLATELET COUNT 261 K/MM3 (134-434); RBC 5.03 M/mm3 (4.00-5.60); RDW 14.4 % (11.9-15.9); WHITE BLOOD COUNT 7.2 K/mm3 (4.0-10.0)
[2019-05-30 08:39] LABS: BLOOD UREA NITROGEN 12.4 mg/dL (7-18); CALCIUM 9.3 mg/dL (8.5-10.1); POTASSIUM 4.8 mmol/L (3.5-5.1)
[2019-05-30] MEDS: TAMSULOSIN HCL 0.4 MG CAP PO SCH (08:39)
[2019-05-30] MEDS ORDERED: PT OWN MED DRAWER 7, Y5N ONE (11:36)
[2019-05-30] MEDS: CYCLOBENZAPRINE HCL 5 MG TABLET PO SCH (11:40)
[2019-05-30] MEDS: SERTRALINE HCL 25 MG TABLET (FP) PO SCH (11:40)
[2019-05-30] MEDS: PANTOPRAZOLE 40 MG TABLET (FP) PO SCH (11:40)
[2019-05-30] MEDS: amLODIPine BESYLATE 5 MG TABLET (FP) PO SCH (11:40)
[2019-05-30] MEDS: ASPIRIN COATED 81 MG TABLET.EC PO SCH (11:40)
[2019-05-30] MEDS: LIDOCAINE 5% TOPICAL PATCH TP SCH ×2 (11:41→11:42)
[2019-05-30] MEDS: POLYETHYLENE GLYCOL 3350 119 GM BTL PO SCH (11:42)
--- NOTE | 2019-05-30 15:11 | PN ---
Teaching Attending Note Name of Resident: Smita Duff ATTENDING PHYSICIAN STATEMENT I saw and evaluated the patient. I reviewed the resident's note and discussed the case with the resident. I agree with the resident's findings and plan as documented. SUBJECTIVE: pain in LLE and lower back OBJECTIVE: NAD. L corneal ossification. no facial droop. trach hole CV: RRR Lungs: CTAB Abd:soft, NT, ND , NL BS Neuro of LE: strength 5/5 in LE proximally and distally bilaterally except for L hip flexion 4/5 . sensation to light touch nL. reflexes 2+ knee jerk ASSESSMENT AND PLAN: 83 year old male with a PMHx of Laryngeal cancer and prostate cancer who is status post radical neck dissection with tracheostomy , hypertension, hypothyroidism,s admitted for intractable back pain and difficulty ambulating. 1- Lower back pain, due to bulging disks and radiculopathy. neuro exam as above. - PT - pain control . will dc on oxy and fentanyl patch . - steroid injection was planned but pain consult ( Dr. kirby) recommended f/u in office as he is not available today. Dr. Dueñas is on vacation too. 2- IRMA : resolved 3- Hypothyroidism : cont synthroid and Cytomel daily . repeat TFTS in 6 weeks Dc to rehab today
[2019-05-30 16:16] VITALS: BP 152/64; TEMP 98.9
[2019-05-30] MEDS: oxyCODONE HCL 5 MG TABLET PO PRN (16:56)
--- NOTE | 2019-05-30 19:27 | DS ---
Physical Exam: SUBJECTIVE: Patient seen and examined. pt stable with pain scale improved OBJECTIVE: Vital Signs Period Temp Pulse Resp BP Sys/Bennett Pulse Ox Last 24 Hr 98.2 F-98.9 F 80-80 18-20 152-153/64-66 96-96 PHYSICAL EXAM EYES: L eye with corneal opacity. NECK: Tracheostomy site clean, dry, and intact with audible secretions LUNGS: Breath sounds equal, clear to auscultation bilaterally. No wheezes, and no crackles. No accessory muscle use. HEART: Regular rate and rhythm, normal S1 and S2 without murmur, rub or gallop. ABDOMEN: Soft, nontender, mildly distended, normoactive bowel sounds, no guarding, no rebound, no masses. Inguinal hernia and supraumbilical hernia palpated. EXTREMITIES: 2+ pulses, warm, well-perfused. No cyanosis. No clubbing. No peripheral edema. NEUROLOGICAL: Cranial nerves II-XII intact with exception of L eye. 5/5 muscle strength upper extremities bilaterally. 5/5 muscle strength on R lower extremity. 4/5 muscle strength proximally on L lower extremity. 2-3/5 muscle strength distally on L lower extremity. Sensation intact. LABS Laboratory Results - last 24 hr 05/30/19 05/30/19 07:55 07:55 WBC 7.2 RBC 5.03 Hgb 15.9 Hct 47.0 D MCV 93.4 MCH 31.5 MCHC 33.7 RDW 14.4 Plt Count 261 MPV 9.9 Absolute Neuts (auto) 5.9 Neutrophils % 81.7 Lymphocytes % 7.9 L D Monocytes % 7.4 Eosinophils % 2.1 Basophils % 0.9 Nucleated RBC % 0 Sodium 137 Potassium 4.8 Chloride 100 Carbon Dioxide 29 Anion Gap 8 BUN 12.4 Creatinine 1.0 Est GFR (CKD-EPI)AfAm 80.88 Est GFR (CKD-EPI)NonAf 69.78 Random Glucose 98 Calcium 9.3 Hip and pelvis L 05/22/19 3 views of the left hip including an AP view of the pelvis reveal symmetrical hips with no sign of fracture or subluxation and no sign of blastic or lytic changes. There are clips by the symphysis pubis, patent SI joints and degenerative spine changes. There is a nonspecific bowel pattern. The pelvic bones are intact. There is no sign of blastic or lytic changes and no sign of fracture or subluxation. If symptoms persist, further imaging and orthopedic consultation may be of help. Pelvic CT 05/22/19 Multilevel degenerative disc disease, disc bulge and bilateral facet hypertrophy, as described above without gross evidence of a compression fracture or subluxation. [id number] mainly right paracentral disc herniation at L4-L5 level likely impinging right L5 nerve root as well as reaching and probably impinging left L4 nerve root in the foramen. No gross focal sclerotic or lytic bone lesion is identified on this examination. Correlate for further evaluation considering the patient's clinical history. Note is made of tiny metallic densities in the prostate gland. Please refer to CT scan of the abdomen and pelvis findings done at the same time. CT abdomen 05/22/19 Cholelithiasis. 2. Thickened urinary bladder with hyperdense urine suspicious for cystitis. 3. No additional evidence of acute pathology within the abdomen or pelvis. Please see above discussion. femur left 05/23/19 4 images of the left femur have been submitted. There is no sign of fracture or subluxation and no sign of blastic or lytic changes. A foreign body or soft tissue air is not seen. If symptoms persist , further imaging may be of help renal US 05/23/19 The kidneys are normal in size with the right kidney measuring 9.8 x 4.5 x 5.1 cm and the left kidney measuring 9.3 x 4.5 x 4.9 cm. There is no evidence of hydronephrosis or contour deforming renal masses. There is a left lower pole cyst measuring 1.6 x 1.4 x 1.2 cm. Evaluation of the urinary bladder demonstrates no intrinsic bladder abnormalities. Bilateral ureteral jets are visualized. A pre-void bladder volume of 101 cc was calculated. A post voiding image demonstrates complete emptying of the bladder with no significant postvoid residual 05/23/19 Straightening of the lumbar spine. Multilevel degenerative disc disease , as described above. L1-L2 mild mainly right lateral disc bulge possibly slightly impinging right L1 nerve root L2-L3 minimal left lateral disc bulge without nerve root impingement L3-L4 mild broad-based disc bulge reaching left L3 nerve root without definite impingement L4-L5 mild to moderate disc bulge/ herniation impinging left L4 nerve root in the foramen as well as deforming the thecal sac and probably impinging the exiting right L5 nerve root. Likely tiny right paracentral extruded fragment is extending superiorly, measuring 4 mm. L5- S1 mild broadbase disc bulge reaching both L5 nerve roots and probably slightly impinging the left. Multilevel bilateral facet hypertrophy mainly at L4-L5 level , on the left HOSPITAL COURSE: Date of Admission:05/23/19 Abel Black is an 83 year old male with a past medical history of hypertension, hypothyroidism, prostate cancer, laryngeal carcinoma (s/p resection, w/ vocal assist device) who is admitted for intractable back pain and difficulty ambulating. Pt gt a CT scan and MRI of the lumbar spine with the above findings which is basically negative spinal cord compression. Pt received pain management which improved his symptoms. Pt was seen by neurosurgery who recommended steroid epidural injections as well as pt before attempting surgery. Pt was found to have elevated TSH and low T3 for which endocrine was consulted and added cytomel to his levothyroxyne. Pt is to follow up out patient for appropriate response. Pt will be followed up as an outpatient with a transportation equipment painter as pt continues to have pain despite treatment. Date of Discharge: 05/30/19 Minutes to complete discharge: 35 Discharge Summary Reason For Visit: INABILITY TO AMBULATE DUE TO HIP,PIRIFORMIS MUSCLE Current Active Problems Hypothyroidism (Acute) Unable to ambulate (Acute) Condition: Improved - Instructions Diet, Activity, Other Instructions: You came into the ED because of intractable back pain and weakness. We took some imaging of your back that showed narrowing of your spinal canal in your lower back but no spinal cord compression. You were found to have some abnormalities in your thyroid function so you were seen by endocrinology who made some changes to your thyroid medication. You were also seen by neurology, neurosurgery while you were here. Your symptoms have improved and you are now ready to be discharged to a longterm facility. Medications: Please resume all of your home medications. We ADDED some medications to your regimen: Please take cytomel 5 mcg by mouth in the morning in addition to you levothyroxine 88 mcg daily. Please take oxycodone 2.5mg by mouth every twelve hours as needed. Please remove the fentanyl patch after 72hrs, and replace q 72 hours Follow up: Please follow up with Dr Villarreal within three days for your pain management and steroid injection Please follow up with Dr Catalan within three weeks to follow up on your thyroid function. Please follow up with your Primary care Physician Dr Leonela Doe within one week. Additional care: Your imaging showed you have 2 renal cysts and small gallstones please follow up with your PCP If you begin to experience inability to retain your urine and bowel, severe weakness, loss of sensation in your legs, shortness of breath, chest pain, bleeding, please return to the emergency room immediately. Referrals: Jose D Villarreal MD [Staff Physician] - 1 Week Philipp Catalan MD [Staff Physician] - 3 Weeks Disposition: LONGTERM FACILITY - Home Medications Comprehensive Discharge Medication List: Ambulatory Orders Albuterol Sulfate Inhaler - [Ventolin HFA Inhaler -] 1 puff IH PRN PRN 05/23/19 Amlodipine Besylate [Norvasc -] 5 mg PO DAILY 05/23/19 Aspirin [Aspirin EC] 81 mg PO DAILY 05/23/19 Cholecalciferol (Vitamin D3) [Vitamin D3] 400 unit PO DAILY 05/23/19 Cyanocobalamin [Vitamin B12 -] 2,000 mcg PO DAILY 05/23/19 Levothyroxine [Synthroid -] 88 mcg PO DAILY 05/23/19 Multivitamin [Multiple Vitamins] 1 tab PO DAILY 05/23/19 Sertraline HCl [Zoloft -] 25 mg PO DAILY 05/23/19 Tamsulosin HCl [Flomax] 0.4 mg PO DAILY 05/23/19 Hydrocortisone Valerate [Westcort -] 1 applic TP BID 05/24/19 Acetaminophen [Tylenol .Extra-Strength -] 500 mg PO Q6H PRN #30 tablet 05/30/19 Docusate Sodium [Colace -] 200 mg PO HS #60 capsule 05/30/19 FENTANYL 12mcg PATCH [DURAGESIC 12mcg PATCH -] 1 patch TD Q72H PRN #1 patch.td72 MDD 1 05/30/19 Liothyronine Sodium [Cytomel -] 5 mcg PO AM #30 tablet 05/30/19 Polyethylene Glycol 3350 [Miralax 119 gm Btl -] 17 gm PO BID #1 bottle 05/30/19 oxyCODONE HCL [Roxicodone -] 2.5 mg PO Q12H PRN #6 tablet MDD 2 05/30/19 Problem List - Problems (1) Hypothyroidism Code(s): E03.9 - HYPOTHYROIDISM, UNSPECIFIED Qualifiers: 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 Critical Care patient: No - Discharge Referral Referred to [facility] No ATTENDING PHYSICIAN STATEMENT I saw and evaluated the patient. I reviewed the resident's note and discussed the case with the resident. I agree with the resident's findings and plan as documented. SUBJECTIVE: OBJECTIVE: ASSESSMENT AND PLAN:
== END 2019-05-30 19:47 | DRG 552 ==
LOC: JER 18:08 → JERBED 05-23 03:14 → J6S 05-23 17:36
PROVIDERS: ADMIT Internal Medicine; ATTEND Internal Medicine
DX: M51.17 Intervertebral disc disorders with radiculopathy, lumbosacral region (principal); N17.9 Acute kidney failure, unspecified; I95.9 Hypotension, unspecified; R26.2 Difficulty in walking, not elsewhere classified; E06.3 Autoimmune thyroiditis; D72.829 Elevated white blood cell count, unspecified; M48.061 Spinal stenosis, lumbar region without neurogenic claudication; M54.9 Dorsalgia, unspecified; E66.8 Other obesity; Z68.30 Body mass index [BMI] 30.0-30.9, adult; K80.80 Other cholelithiasis without obstruction; K44.9 Diaphragmatic hernia without obstruction or gangrene; D75.1 Secondary polycythemia; I12.9 Hypertensive chronic kidney disease with stage 1 through stage 4 chronic kidney disease, or unspecified chronic kidney disease; N18.9 Chronic kidney disease, unspecified; H54.40 Blindness, one eye, unspecified eye; Z85.21 Personal history of malignant neoplasm of larynx; Z85.46 Personal history of malignant neoplasm of prostate
CPT/HCPCS: 36415; 72131-TC; 72148-TC; 73523-TC-FY; 73552-TC-LT-FY; 74176-TC; 76705-TC; 76775-TC; 76856-TC; 80048; 80053; 81003; 82248; 82436; 82607; 82728; 83540; 83550; 83735; 84133; 84300; 84439; 84443; 84481; 85025; 85027; 85651; 90670; 97116-GP; 97162-GP; 99284-25; J1644; J7030